=== PATIENT | male | born 1945 | race Caucasian/White ===

== ENCOUNTER 2021-04-06 10:04 | Outpatient (CLI) | payer MEDICARE ==
[~2021-04-06] VITALS: Ht 172.7 cm; Wt 88.0 kg
[2021-04-06 10:08] VITALS: BP 191/89
[2021-04-06] MEDS ORDERED: diphenhydrAMINE 50 MG/ML INJ (BENADRYL) IV PRN (10:15)
[2021-04-06] MEDS ORDERED: CASIRIVIMAB/IMDEVIMAB 1,200 MG in NS (IVPB) 250 ML IV ONE (10:15)
[2021-04-06] MEDS ORDERED: ACETAMINOPHEN 500 MG TAB (TYLENOL) PO PRN (10:15)
[2021-04-06] MEDS ORDERED: EPINEPHrine INJECTION 1 MG/ML AMP IM PRN (10:15)
[2021-04-06] MEDS ORDERED: ONDANSETRON 4 MG/2 ML (SDV) Z0FRAN IV PRN (10:15)
[2021-04-06 11:38] VITALS: BP 149/80
== END 2021-04-06 11:52 | disposition home or self-care (01) ==
LOC: INFUSION 10:04
PROVIDERS: ATTEND Registered Nurse Neonatal Intensive Care
DX: U07.1 COVID-19 (principal)

== ENCOUNTER 2022-03-27 07:47 | Inpatient (IN) | payer OTHER, MEDICARE ==
[2022-03-27] VITALS (8 sets, daily range): BP systolic 91–125; BP diastolic 36–84
[~2022-03-27] VITALS: Ht 175.3 cm; Wt 100.5 kg
--- NOTE | 2022-03-27 07:59 | ED Abdominal Pain ---
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 Pain is mainly in the umbilical area and the RUQ, and is associated with lack of appetite and intolerance to food or liquids. Patient also has multiple episodes of diarrhea over the past 3 to 4 days which is watery, non-bloody. Denies chest pain, fever, chills, palpitations, dizziness, constipation, headache. No known sick contacts. Allergies and Home Medications Allergies Coded Allergies: Penicillins (Unverified Allergy, Unknown, 04/06/21) streptomycin (Unverified Allergy, Unknown, 04/06/21) Patient Home Medication List Home Medication List Reviewed: Yes Review of Systems Review of Systems Constitutional: no symptoms reported EENTM: No Symptoms Reported Respiratory: No Symptoms Reported Cardiovascular: No Symptoms Reported Gastrointestinal: Abdominal Pain, Diarrhea, Poor Appetite, Poor Fluid Intake Genitourinary: No Symptoms Reported Musculoskeletal: no symptoms reported Skin: no symptoms reported Psychiatric/Neurological: No Symptoms Reported Endocrine: No Symptoms Reported Hematologic/Lymphatic: No Symptoms Reported Physical Exam Vital Signs Vital Signs - First Documented 03/27/22 08:06 Temp 35.3 Pulse 61 Resp 18 B/P (MAP) 125/84 (98) Pulse Ox 94 O2 Delivery Room Air Capillary Refill : Height/Weight/BMI Height: '" Weight: lbs. oz. kg; BMI Method: General Appearance: WD/WN, no apparent distress HEENT: PERRL/EOMI Neck: non-tender, full range of motion, supple, normal inspection Respiratory: chest non-tender, lungs clear, normal breath sounds Cardiovascular: normal peripheral pulses, regular rate, rhythm, no edema Gastrointestinal: normal bowel sounds, soft, tenderness (RUQ tenderness and periumbilical area tenderness present) Extremities: normal range of motion Back: normal inspection, no CVA tenderness Pelvic: normal external exam Neurologic/Psychiatric: no motor/sensory deficits, alert, oriented x 3 Skin: normal color Lymphatic: no adenopathy Focused Exam Lactate Level 03/27/22 08:14: Lactic Acid Level 2.28*H 03/27/22 10:20: Lactic Acid Level 1.97 Lactic Acid Level Laboratory Tests Test 03/27/22 08:14 03/27/22 10:20 Lactic Acid Level 2.28 MMOL/L (0.50-2.00) *H 1.97 MMOL/L (0.50-2.00) Progress/Results/Core Measures Results/Orders Lab Results Laboratory Tests Test 03/27/22 08:14 03/27/22 08:50 03/27/22 10:20 Range/Units White Blood Count 11.8 H 4.3-11.0 10^3/uL Red Blood Count 5.88 H 4.30-5.52 10^6/uL Hemoglobin 18.0 H 13.3-17.7 g/dL Hematocrit 53 40-54 % Mean Corpuscular Volume 91 80-99 fL Mean Corpuscular Hemoglobin 31 25-34 pg Mean Corpuscular Hemoglobin Concent 34 32-36 g/dL Red Cell Distribution Width 13.3 10.0-14.5 % Platelet Count 261 130-400 10^3/uL Mean Platelet Volume 11.3 9.0-12.2 fL Immature Granulocyte % (Auto) 1 % Neutrophils (%) (Auto) 69 42-75 % Lymphocytes (%) (Auto) 18 12-44 % Monocytes (%) (Auto) 5 0-12 % Eosinophils (%) (Auto) 7 0-10 % Basophils (%) (Auto) 1 0-10 % Neutrophils # (Auto) 8.2 H 1.8-7.8 10^3/uL Lymphocytes # (Auto) 2.1 1.0-4.0 10^3/uL Monocytes # (Auto) 0.6 0.0-1.0 10^3/uL Eosinophils # (Auto) 0.8 H 0.0-0.3 10^3/uL Basophils # (Auto) 0.1 0.0-0.1 10^3/uL Immature Granulocyte # (Auto) 0.1 0.0-0.1 10^3/uL Sodium Level 136 135-145 MMOL/L Potassium Level 5.2 H 3.6-5.0 MMOL/L Chloride Level 101 98-107 MMOL/L Carbon Dioxide Level 19 L 21-32 MMOL/L Anion Gap 16 H 5-14 MMOL/L Blood Urea Nitrogen 34 H 7-18 MG/DL Creatinine 2.66 H 0.60-1.30 MG/DL Estimat Glomerular Filtration Rate 24 BUN/Creatinine Ratio 13 Glucose Level 252 H 70-105 MG/DL Lactic Acid Level 2.28 *H 1.97 0.50-2.00 MMOL/L Calcium Level 10.1 8.5-10.1 MG/DL Corrected Calcium 8.5-10.1 MG/DL Magnesium Level 1.8 1.6-2.4 MG/DL Total Bilirubin 0.4 0.1-1.0 MG/DL Aspartate Amino Transf (AST/SGOT) 49 H 5-34 U/L Alanine Aminotransferase (ALT/SGPT) 56 H 0-55 U/L Alkaline Phosphatase 152 H 40-136 U/L Troponin I < 0.30 <0.30 NG/ML Pro-B-Type Natriuretic Peptide 31.9 <450.0 PG/ML Total Protein 8.0 6.4-8.2 GM/DL Albumin 4.6 H 3.2-4.5 GM/DL Lipase 53 8-78 U/L Influenza Type A (RT-PCR) Not Detected Not Detecte Influenza Type B (RT-PCR) Not Detected Not Detecte SARS-CoV-2 RNA (RT-PCR) Not Detected Not Detecte My Orders Orders - MIKO RAMIREZ MD Chest 1 View Ap/Pa Only (03/27/22 08:13) Cbc With Automated Diff (03/27/22 08:13) Comprehensive Metabolic Panel (03/27/22 08:13) Magnesium (03/27/22 08:13) Ua Culture If Indicated (03/27/22 08:13) Stool Culture (03/27/22 08:13) Fecal Wbc (03/27/22 08:13) Rotavirus Antigen (03/27/22 08:13) Probnp Fs (03/27/22 08:13) Troponin I Fs (03/27/22 08:13) Ed Iv/Invasive Line Start (03/27/22 08:15) Ns Iv 1000 Ml (Sodium Chloride 0.9%) (03/27/22 08:15) Covid 19 Inhouse Test (03/27/22 08:22) Influenza A And B By Pcr (03/27/22 08:22) Ondansetron Injection (Zofran Injectio (03/27/22 08:30) Ketorolac Injection (Toradol Injection) (03/27/22 08:30) Ct Abdomen/Pelvis Wo (03/27/22 08:15) Lipase (03/27/22 09:32) Lactic Acid Analyzer (03/27/22 09:33) Blood Culture (03/27/22 09:33) Hydromorphone Injection (Dilaudid Inject (03/27/22 10:36) Hydromorphone Injection (Dilaudid Inject (03/27/22 11:00) Ed Iv/Invasive Line Start (03/27/22 10:47) Ns Iv 1000 Ml (Sodium Chloride 0.9%) (03/27/22 11:00) Ceftriaxone 1 Gm Pre-Mix (Rocephin 1 Gm (03/27/22 11:07) Catheter(Urinary) Insert & Ass 03,15 (03/27/22 11:59) Lidocaine 2% (Urojet) (Xylocaine Urojet) (03/27/22 12:00) Medications Given in ED Current Medications Medications Dose Ordered Sig/Wally Route Start Time Stop Time Status Last Admin Dose Admin Hydromorphone HCl 0.5 mg ONCE ONCE IV 03/27/22 11:00 03/27/22 11:01 DC 03/27/22 10:37 0.5 MG Ketorolac Tromethamine 15 mg ONCE ONCE IVP 03/27/22 08:30 03/27/22 08:31 DC 03/27/22 08:33 15 MG Ondansetron HCl 4 mg ONCE ONCE IVP 03/27/22 08:30 03/27/22 08:31 DC 03/27/22 08:33 4 MG Vital Signs/I&O 03/27/22 08:06 Temp 35.3 Pulse 61 Resp 18 B/P (MAP) 125/84 (98) Pulse Ox 94 O2 Delivery Room Air Progress Progress Note : Progress Note 1. PNEUMOBILIA/ Portal Veinous Air - CT ABD & PELVIS:Pneumobilia, see report - CXR:unremarkable - CBC: WBC is 11.8 with a left shift, Hb is increased: 18 - Mildly elevated AST/ ALT/ Alk Phos - UA negative for infection - Troponin: non-ischemic - Lipase neg - NS IVF/ x2 in ER - Toradol 15mg iv, then later Dilaudid 0.5mg iv for pain - Zofran iv and Reglan iv given in ER - Discussed with Dr Schaeffer at 10:45 AM, request to radiology for re-read on CT abdomen - Will admit to cardiac step-down, accepted by hospitalist 2. DEHYDRATION with ALETHEA/ POSSIBLE EARLY SEPSIS - No history of kidney disease, last HbA1c is 6.8 - Lactic acid is 2.28, blood cultures sent - Stool studies sent - WBC is 11.8 with a left shift - COVID test/ Rapid Flu Test:negative - Empiric treatment with ceftriaxone 1gm iv STAT in ER Diagnostic Imaging Diagonstic Imaging: Xray, CT Plain Films/CT/US/NM/MRI: chest, abdomen Comments Auto Exposure Controls were utilized during the CT exam to meet ALARA standards for radiation dose reduction. There is no prior CT abdomen pelvis for comparison Visualized portions of the lung bases show no consolidation. There is no pleural fluid or free intraperitoneal air. The liver shows no focal lesion. There are small areas of air within the left lobe of the liver which may represent portal venous gas. The stomach shows some thickening of its folds. There is no definitive air in the gastric wall but gastric wall air is difficult to exclude. A small amount of air is seen in the left upper quadrant veins adjacent to the stomach. Patient's had previous cholecystectomy and a small amount of air seen in the biliary tree as well. The spleen, adrenals, and pancreas are normal. Kidneys bilaterally show no hydronephrosis, there are small nonocclusive stones in the right kidney. There is no ureteral stone or hydronephrosis. There is no retroperitoneal mass or adenopathy. There is atherosclerotic change of aorta without evidence of aneurysm. Visualized bowel loops show no focal bowel wall thickening or obstruction. There are uncomplicated clonic diverticuli. There is prostatic enlargement. There is no pelvic lymphadenopathy. There is a small fat-containing periumbilical hernia as well as small fat-containing bilateral inguinal hernias. IMPRESSION: There is air in the left lobe the liver which is suspicious for portal venous air. There is no significant pneumatosis intestinalis or significant intestinal wall thickening. There is some thickening of the gastric folds, air in the gastric wall is not definitively seen but is difficult to exclude given the appearance of the gastric folds. A small amount of air seen in the left upper quadrant veins adjacent to the stomach. There is no abdominal mass or abnormal fluid collection. There is a nonocclusive stone in the right kidney. Prostatic enlargement is noted. Patient has had previous cholecystectomy. Dictated by: Dictated on workstation # [id number] Dict: 03/27/2257 Trans: 03/27/[address] [facility] [id number] Interpreted by: VANESSA REEVES MD Electronically signed by: VANESSA REEVES MD 03/27/22 1115 [facility] [place], [place] NAME: CESILIA FOSTER [facility] REC#: [id number] PT STATUS: REG ER : 1945 PHYSICIAN: MIKO RAMIREZ MD ADMIT DATE: 03/27/22/ER FS Signed Date of Exam:03/27/22 CHEST 1 VIEW AP/PA ONLY HISTORY: Nausea and vomiting, abdominal pain. COMPARISON: None TECHNIQUE: Frontal view of the chest. FINDINGS: There is linear opacity in the left lung base, likely atelectasis or scarring. No other consolidation is seen. There is no pleural effusion or pneumothorax. The cardiac silhouette is normal in size. There is aortic atherosclerosis. There are degenerative changes in the shoulders and spine. IMPRESSION: 1. Linear opacity in the left lung base likely represents atelectasis or scarring. Dictated by: Dictated on workstation # [id number] Dict: 03/27/2204 Trans: 03/27/22 1002 [id number] Interpreted by: JESSICA BENJAMIN MD Electronically signed by: JESSICA BENJAMIN MD 03/27/22 1002 Departure Impression Primary Impression: Pneumobilia Additional Impressions: Abdominal pain Qualified Codes: R10.11 - Right upper quadrant pain ALETHEA (acute kidney injury) Dehydration Disposition: 30 STILL A PATIENT Condition: Stable Admissions Decision to Admit Reason: Admit from ER (General) Decision to Admit/Date: Mar 27, 2022 Time/Decision to Admit Time: 11:40 Transfer Method of Transfer: EMS Departure-Patient Inst. Referrals: FARHAN PETERSEN MD (PCP) Primary Care Physician MIKO RAMIREZ MD Mar 27, 2022 07:59
[2022-03-27] MEDS ORDERED: NS IV 1000 ML 1,000 ML IV STA (08:15)
[2022-03-27 08:24] LABS: BASOPHILS # (AUTO) 0.1 10^3/uL (0.0-0.1); BASOPHILS % (AUTO) 1 % (0-10); EOSINOPHILS # (AUTO) 0.8 10^3/uL (0.0-0.3); EOSINOPHILS % (AUTO) 7 % (0-10); HEMATOCRIT 53 % (40-54); LYMPHOCYTES # (AUTO) 2.1 10^3/uL (1.0-4.0); LYMPHOCYTES % (AUTO) 18 % (12-44); MEAN CORPUSCULAR HEMOGLOBIN 31 pg (25-34); MEAN CORPUSCULAR HGB CONC 34 g/dL (32-36); MEAN CORPUSCULAR VOLUME 91 fL (80-99); MEAN PLATELET VOLUME 11.3 fL (9.0-12.2); MONOCYTES # (AUTO) 0.6 10^3/uL (0.0-1.0); MONOCYTES % (AUTO) 5 % (0-12); NEUTROPHILS # (AUTO) 8.2 10^3/uL (1.8-7.8); NEUTROPHILS % (AUTO) 69 % (42-75); PLATELET COUNT 261 10^3/uL (130-400); WHITE BLOOD COUNT 11.8 10^3/uL (4.3-11.0)
[2022-03-27] MEDS ORDERED: ONDANSETRON 4 MG/2 ML (SDV) Z0FRAN IVP ONE (08:30)
[2022-03-27] MEDS ORDERED: KETOROLAC 30 MG/ML VIAL IVP ONE (08:30)
[2022-03-27] MEDS ORDERED: NS 100 ML (IVPB) BAG IV ONE (08:45)
[2022-03-27] MEDS ORDERED: HOLD METFORMIN - RECEIVED CONTRAST 20 ML VIAL IV SCH (08:45)
[2022-03-27] MEDS ORDERED: IOHEXOL 350 MG/ML 100 ML (OMNIPAQUE 350) VIAL IV ONE (08:45)
--- NOTE | 2022-03-27 09:07 | Diagnostic Imaging Report ---
HISTORY: Nausea and vomiting, abdominal pain. COMPARISON: None TECHNIQUE: Frontal view of the chest. FINDINGS: There is linear opacity in the left lung base, likely atelectasis or scarring. No other consolidation is seen. There is no pleural effusion or pneumothorax. The cardiac silhouette is normal in size. There is aortic atherosclerosis. There are degenerative changes in the shoulders and spine. IMPRESSION: 1. Linear opacity in the left lung base likely represents atelectasis or scarring. Dictated by: Dictated on workstation # [id number]
[2022-03-27 09:23] LABS: POTASSIUM 5.2 MMOL/L (3.6-5.0); SODIUM 136 MMOL/L (135-145)
[2022-03-27 09:24] LABS: ALANINE AMINOTRANSFERASE 56 U/L (0-55); ALKALINE PHOSPHATASE 152 U/L (40-136); BILIRUBIN,TOTAL 0.4 MG/DL (0.1-1.0); BUN/CREATININE RATIO 13; CALCIUM 10.1 MG/DL (8.5-10.1); CARBON DIOXIDE 19 MMOL/L (21-32); CHLORIDE 101 MMOL/L (98-107); CREATININE SERUM 2.66 MG/DL (0.60-1.30); GFR ESTIMATED 24; GLUCOSE 252 MG/DL (70-105); MAGNESIUM 1.8 MG/DL (1.6-2.4)
[2022-03-27 09:25] LABS: ALBUMIN 4.6 GM/DL (3.2-4.5)
--- NOTE | 2022-03-27 10:15 | Diagnostic Imaging Report ---
Indication: Right upper quadrant pain x4 days TECHNIQUE: Multiple contiguous axial images were obtained through the abdomen and pelvis without the use of intravenous contrast. Auto Exposure Controls were utilized during the CT exam to meet ALARA standards for radiation dose reduction. There is no prior CT abdomen pelvis for comparison Visualized portions of the lung bases show no consolidation. There is no pleural fluid or free intraperitoneal air. The liver shows no focal lesion. There are small areas of air within the left lobe of the liver which may represent portal venous gas. The stomach shows some thickening of its folds. There is no definitive air in the gastric wall but gastric wall air is difficult to exclude. A small amount of air is seen in the left upper quadrant veins adjacent to the stomach. Patient's had previous cholecystectomy and a small amount of air seen in the biliary tree as well. The spleen, adrenals, and pancreas are normal. Kidneys bilaterally show no hydronephrosis, there are small nonocclusive stones in the right kidney. There is no ureteral stone or hydronephrosis. There is no retroperitoneal mass or adenopathy. There is atherosclerotic change of aorta without evidence of aneurysm. Visualized bowel loops show no focal bowel wall thickening or obstruction. There are uncomplicated clonic diverticuli. There is prostatic enlargement. There is no pelvic lymphadenopathy. There is a small fat-containing periumbilical hernia as well as small fat-containing bilateral inguinal hernias. IMPRESSION: There is air in the left lobe the liver which is suspicious for portal venous air. There is no significant pneumatosis intestinalis or significant intestinal wall thickening. There is some thickening of the gastric folds, air in the gastric wall is not definitively seen but is difficult to exclude given the appearance of the gastric folds. A small amount of air seen in the left upper quadrant veins adjacent to the stomach. There is no abdominal mass or abnormal fluid collection. There is a nonocclusive stone in the right kidney. Prostatic enlargement is noted. Patient has had previous cholecystectomy. Dictated by: Dictated on workstation # [id number]
[2022-03-27] MEDS ORDERED: HYDROmorphone 2 MG/ML VIAL (DILAUDID) ONE (10:36)
[2022-03-27] MEDS ORDERED: HYDROmorphone 2 MG/ML VIAL (DILAUDID) IV ONE ×2 (11:00→14:30)
[2022-03-27] MEDS ORDERED: NS IV 1000 ML 1,000 ML IV SCH ×3 (11:00→19:30)
[2022-03-27] MEDS ORDERED: cefTRIAXone 1 GM PRE-MIX 50 ML IV STA (11:07)
[2022-03-27] MEDS ORDERED: LIDOCAINE UROJET 2% GEL 10 ML PKG TOP ONE (12:00)
[2022-03-27] MEDS ORDERED: METOCLOPRAMIDE INJ 10 MG/2 ML (REGLAN) IVP STA (12:11)
[2022-03-27] MEDS ORDERED: FAMOTIDINE 20MG/2ML IV (PEPCID) IVP ONE (12:45)
[2022-03-27 13:20] LABS: CLARITY,URINE SLT CLOUDY; COLOR,URINE YELLOW
[2022-03-27 13:21] LABS: GLUCOSE, URINE (UA) 2+ (NEGATIVE); KETONES,URINE TRACE (NEGATIVE); NITRITE,URINE NEGATIVE (NEGATIVE); PROTEIN,URINE TRACE (NEGATIVE)
[2022-03-27 13:22] LABS: BACTERIA,URINE NEGATIVE /HPF; BILIRUBIN,URINE 1+ (NEGATIVE); LEUKOCYTE ESTERASE ,URINE NEGATIVE (NEGATIVE); WBC,URINE 0-2 /HPF
[2022-03-27] MEDS ORDERED: diphenhydrAMINE 25 MG TAB (BENADRYL) PO PRN (16:00)
[2022-03-27] MEDS ORDERED: ACETAMINOPHEN 325 MG TABLET PO PRN (16:00)
[2022-03-27] MEDS ORDERED: ONDANSETRON 4 MG/2 ML (SDV) Z0FRAN IV PRN (16:00)
[2022-03-27] MEDS ORDERED: MELATONIN 3 MG TABLET PO PRN (16:00)
[2022-03-27] MEDS ORDERED: ANTACID SUSP 30 ML UDC (MYLANTA) PO PRN (16:00)
[2022-03-27] MEDS ORDERED: diphenhydrAMINE 50 MG/ML INJ (BENADRYL) IVP PRN (16:00)
[2022-03-27] MEDS ORDERED: polyethylene glycoL POWDER 17 GM (MIRALAX) PACK PO PRN (16:00)
[2022-03-27] MEDS ORDERED: BISACODYL 10 MG SUPP (DULCOLAX) PR PRN (16:00)
[2022-03-27] MEDS ORDERED: ONDANSETRON 4 MG (ZOFRAN) ORAL DISSOLVE TAB PO PRN (16:00)
--- NOTE | 2022-03-27 16:39 | History & Physical-Hospitalist ---
ARTURRISHI 03/27/22 1639: History of Present Illness HPI/Chief Complaint CC: watery diarrhea and abdominal pain Bonilla Hall, 77 YO male with history of CAD, AK/stent placement 2001, GERD and T2DM presented to [facility] ED today with 3-4 days of watery diarrhea and RUQ abdominal pain. He is admitted to medicine for CT evidence of pneumobilia, dehydration with ALETHEA, and possible early sepsis, with elevated white cell count with left shift and lactic acidosis (has improved, down to 1.97). He was started on ceftriaxone, pain meds, and nausea medications in the ED. States he is feeling better, rates his RUQ pain 2/10 and has not had any bouts of diarrhea since admission. He has not eaten in the last 3 days and has had little fluid intake. States he has chills and feels warm. Denies blood in stool, vomiting, chest pain, shortness of breath, palpitations, cough, or any other acute sx at this time. No recent illness or sick contacts. He takes plavix, but did not take it this morning. Hx of open appendectomy and partial esophagectomy at age 3 and cholecystectomy at age 74. He is seen at [facility]. Source: patient, other ([facility] ED report) Exam Limitations: no limitations Date Seen 03/27/22 Time Seen by a Provider: 16:10 Attending Physician Douglas Ponce MD PCP Admitting Physician: Yesenia Yang DO Attending Physician: Yesenia Yang DO Referring Physician Date of Admission Mar 27, 2022 at 15:35 Home Medications & Allergies Home Medications Reviewed patient Home Medication Reconciliation performed by pharmacy medication reconciliations diet technician registered and/or nursing. Patients Allergies have been reviewed. Allergies Allergies Coded Allergies Penicillins (Unverified Allergy, Unknown, 04/06/21) streptomycin (Unverified Allergy, Unknown, 04/06/21) Past Pmqvzrh-Xhgxbq-Gezrzf Hx Patient Social History Tobacco Use?: No Smoking Status: Former Smoker Smokeless Tobacco Frequency: Never a User Use of E-Cig and/or Vaping dev: No Substance use?: No Alcohol Use?: No Pt feels they are or have been: No Current Status Advance Directives: Yes Advance Directive Location: [facility] Communicates: Verbally Primary Language: Scottish Preferred Spoken Language: Scottish Is interpretation needed?: No Implanted or Applied Medical D: Stents Past Medical History Surgeries: Abdominal, Appendectomy, Coronary Stent (2001), Gallbladder, Tonsillectomy Coronary Artery Disease, Heart Attack (2001) Gastroesophageal Reflux Family Medical History Cancer (Sister had stage 4 colon cancer at age 55; in remission with colostomy ) Review of Systems Constitutional: chills; No fever EENTM: No blurred vision, No double vision Respiratory: No cough, No short of breath Cardiovascular: No chest pain Gastrointestinal: RUQ, abdominal pain (RUQ), diarrhea; No hematemesis; loss of appetite; No melena; nausea; No vomiting Genitourinary: decreased output (due to dec fluid intake); No dysuria Musculoskeletal: No joint pain Skin: No change in color, No rash Physical Exam Physical Exam Vital Signs Vital Signs - First Documented 03/27/22 08:06 Temp 35.3 Pulse 61 Resp 18 B/P (MAP) 125/84 (98) Pulse Ox 94 O2 Delivery Room Air Capillary Refill : Less Than 3 Seconds Height, Weight, BMI Height: '" Weight: lbs. oz. kg; 31.76 BMI Method: General Appearance: No Apparent Distress, WD/WN Eyes: Bilateral Eye PERRL, Bilateral Eye EOMI HEENT: PERRL/EOMI, Moist Mucous Membranes Neck: Non Tender, Supple Respiratory: Chest Non Tender, Lungs Clear, Normal Breath Sounds, No Accessory Muscle Use, No Respiratory Distress Cardiovascular: Regular Rate, Rhythm, No Gallop, No Murmur, Normal Peripheral Pulses Gastrointestinal: Non Tender, Soft, Abnormal Bowel Sounds (decreased ); No Distended, No Guarding, No Hernia; Other (large scar from open appendectomy ) Back: No CVA Tenderness Extremity: Non Tender, No Calf Tenderness, No Pedal Edema Neurologic/Psychiatric: Alert, Oriented x3, Normal Mood/Affect Skin: Normal Color, Warm/Dry; No Pallor, No Rash Lymphatic: No Adenopathy Results Results/Procedures Labs Laboratory Tests 03/27/22 08:14 Patient resulted labs reviewed. Imaging Date of Exam:03/27/22 CT ABDOMEN/PELVIS WO Indication: Right upper quadrant pain x4 days TECHNIQUE: Multiple contiguous axial images were obtained through the abdomen and pelvis without the use of intravenous contrast. Auto Exposure Controls were utilized during the CT exam to meet ALARA standards for radiation dose reduction. There is no prior CT abdomen pelvis for comparison Visualized portions of the lung bases show no consolidation. There is no pleural fluid or free intraperitoneal air. The liver shows no focal lesion. There are small areas of air within the left lobe of the liver which may represent portal venous gas. The stomach shows some thickening of its folds. There is no definitive air in the gastric wall but gastric wall air is difficult to exclude. A small amount of air is seen in the left upper quadrant veins adjacent to the stomach. Patient's had previous cholecystectomy and a small amount of air seen in the biliary tree as well. The spleen, adrenals, and pancreas are normal. Kidneys bilaterally show no hydronephrosis, there are small nonocclusive stones in the right kidney. There is no ureteral stone or hydronephrosis. There is no retroperitoneal mass or adenopathy. There is atherosclerotic change of aorta without evidence of aneurysm. Visualized bowel loops show no focal bowel wall thickening or obstruction. There are uncomplicated clonic diverticuli. There is prostatic enlargement. There is no pelvic lymphadenopathy. There is a small fat-containing periumbilical hernia as well as small fat-containing bilateral inguinal hernias. IMPRESSION: There is air in the left lobe the liver which is suspicious for portal venous air. There is no significant pneumatosis intestinalis or significant intestinal wall thickening. There is some thickening of the gastric folds, air in the gastric wall is not definitively seen but is difficult to exclude given the appearance of the gastric folds. A small amount of air seen in the left upper quadrant veins adjacent to the stomach. There is no abdominal mass or abnormal fluid collection. There is a nonocclusive stone in the right kidney. Prostatic enlargement is noted. Patient has had previous cholecystectomy. Dictated by: Dictated on workstation # [id number] Dict: 03/27/22 0957 Trans: 03/27/22 1115 [facility] [place] [id number] Interpreted by: VANESSA REEVES MD Electronically signed by: VANESSA REEVES MD 03/27/22 1115 Assessment/Plan Admission Diagnosis Pneumobilia Admission Status: Inpatient Order (span 2 midnights) Reason for Inpatient Admission: Pneumobilia, Dehydration with ALETHEA Assessment and Plan Pneumobilia and portal venous air Dehydration with ALETHEA Possible early sepsis Lactic Acidosis - improved to 1.97 CAD Chronic anticoagulation - hold plavix Mildly elevated AST/ALT and Alk phos General surgery consulted, pt is NPO at this time IVF to improve hydration status Continue IV abx (ceftriaxone). Blood cultures pending Monitor labs and liver function Clinical Quality Measures DVT/VTE Risk/Contraindication: Contraindications-Pharm: Other *list below* Other: or YESENIA YANG DO 03/28/22 0534: History of Present Illness HPI/Chief Complaint CC: Abdominal pain HPI: This is a complicated [facility] male pt. 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 He presented to the ER with abdominal pain. He was found to have free air on CT scan. We will evaluate that. Continue supportive care and place him on cardiac step down unit. Dr. Schaeffer will review the plan. He was given one dose of Rocephin. Source: patient Exam Limitations: no limitations Past Xhhbbio-Yoszpx-Psazqq Hx Patient Social History Marrital Status: single Review of Systems Constitutional: see HPI Physical Exam Physical Exam General Appearance: No Apparent Distress, Chronically ill Eyes: Right Eye Normal Inspection, Right Eye PERRL HEENT: PERRL/EOMI, Normal ENT Inspection, Pharynx Normal, Moist Mucous Membranes Neck: Full Range of Motion, Normal Inspection, Non Tender Respiratory: Chest Non Tender, Lungs Clear, Normal Breath Sounds, No Accessory Muscle Use, No Respiratory Distress Cardiovascular: Regular Rate, Rhythm, No Edema, No Gallop, No JVD, No Murmur, Normal Peripheral Pulses Gastrointestinal: Normal Bowel Sounds, No Organomegaly, No Pulsatile Mass, Non Tender, Soft Back: Normal Inspection, No CVA Tenderness, No Vertebral Tenderness Extremity: Normal Capillary Refill, Normal Inspection, Normal Range of Motion, Non Tender, No Calf Tenderness, No Pedal Edema Neurologic/Psychiatric: Alert, Oriented x3, No Motor/Sensory Deficits, Normal Mood/Affect Skin: Normal Color, Warm/Dry Lymphatic: No Adenopathy Assessment/Plan Admission Diagnosis Assessment: Free air in abdomen ALETHEA Dehydration Plan: IVF Supportive care Admission Status: Inpatient Order (span 2 midnights) Reason for Inpatient Admission: alethea free air Supervisory-Addendum Brief Verification & Attestation Participated in pt care: history, MDM, physical Personally performed: exam, history, MDM, supervision of care Care discussed with: Medical Student Procedures: n/a Results interpretation: Verified all documentation Verification and Attestation of Medical Student E/M Service A medical student performed and documented this service in my presence. I revie wed and verified all information documented by the medical student and made modifications to such information, when appropriate. I personally performed the physical exam and medical decision making. Yesenia Yang, Mar 28, 2022,05:33 RISHI SIDDIQUI Mar 27, 2022 16:39 YESENIA YANG DO Mar 28, 2022 05:34
--- NOTE | 2022-03-27 17:37 | Consultation - Surgery ---
FABRICIO BRITT 03/27/22 1737: History of Present Illness History of Present Illness Patient Consulted On(rosalinda/time) 03/27/22 17:31 Date Seen by Provider: Mar 27, 2022 Time Seen by Provider: 16:48 History of Present Illness Consult requested by Dr. Kothari. Patient is a 77 y/o M with history of CAD, STEMI with stent (2001), T2DM who presents from [facility] with CC of intermittent abdominal pain for the last 3 to 4 days. He reports that the pain was mostly in his RUQ with some pain around his umbilicus. Currently it is at 2/10 after receiving Dilaudid in the ER. Patient also reports having diarrhea frequently but no blood in his stool. Patient states he has an additional history of partial esophagectomy and appy at age 3. His sister was diagnosed with Stage 4 colon cancer at age 55. His last meal was 3 days ago. Allergies and Home Medications Allergies Coded Allergies: Penicillins (Unverified Allergy, Unknown, 04/06/21) streptomycin (Unverified Allergy, Unknown, 04/06/21) Patient Home Medication List Home Medication List Reviewed: Yes Past Fciroqq-Lrbavc-Kaptxg Hx Patient Social History Smoking Status: Former Smoker Alcohol Use?: No Have you traveled recently?: No Surgeries Surgeries: Abdominal, Appendectomy, Coronary Stent (2001), Gallbladder, Tonsillectomy Cardiovascular Cardiac Disorders: Coronary Artery Disease, Heart Attack (2001) Gastrointestinal Gastrointestinal Disorders: Gastroesophageal Reflux Family Medical History Significant Family History: Cancer (Sister had stage 4 colon cancer at age 55; in remission with colostomy ) Review of Systems-General Constitutional: chills; No fever Respiratory: No cough, No dyspnea on exertion, No short of breath Gastrointestinal: abdominal pain (RUQ), diarrhea; No nausea, No vomiting Physical Exam-General Problems Physical Exam Vital Signs Vital Signs - First Documented 03/27/22 03/27/22 08:06 16:26 Temp 35.3 Pulse 61 Resp 18 B/P (MAP) 125/84 (98) Pulse Ox 94 O2 Delivery Room Air O2 Flow Rate 0.00 Capillary Refill : Less Than 3 Seconds General Appearance: WD/WN, no apparent distress Neck: non-tender, supple Respiratory: chest non-tender, lungs clear, normal breath sounds, no respiratory distress, no accessory muscle use Cardiovascular: regular rate, rhythm, tachycardia Gastrointestinal: normal bowel sounds, non tender, soft Extremities: no pedal edema, no calf tenderness Neurologic/Psychiatric: alert, normal mood/affect Skin: normal color, warm/dry Data Review Labs Laboratory Tests 03/27/22 08:14: White Blood Count 11.8H, Red Blood Count 5.88H, Hemoglobin 18.0H, Hematocrit 53, Mean Corpuscular Volume 91, Mean Corpuscular Hemoglobin 31, Mean Corpuscular Hemoglobin Concent 34, Red Cell Distribution Width 13.3, Platelet Count 261, Mean Platelet Volume 11.3, Immature Granulocyte % (Auto) 1, Neutrophils (%) (Auto) 69, Lymphocytes (%) (Auto) 18, Monocytes (%) (Auto) 5, Eosinophils (%) (Auto) 7, Basophils (%) (Auto) 1, Neutrophils # (Auto) 8.2H, Lymphocytes # (Auto) 2.1, Monocytes # (Auto) 0.6, Eosinophils # (Auto) 0.8H, Basophils # (Auto) 0.1, Immature Granulocyte # (Auto) 0.1, Sodium Level 136, Potassium Level 5.2H, Chloride Level 101, Carbon Dioxide Level 19L, Anion Gap 16H, Blood Urea Nitrogen 34H, Creatinine 2.66H, Estimat Glomerular Filtration Rate 24, BUN/Creatinine Ratio 13, Glucose Level 252H, Lactic Acid Level 2.28*H, Calcium Level 10.1, Corrected Calcium , Magnesium Level 1.8, Total Bilirubin 0.4, Aspartate Amino Transf (AST/SGOT) 49H, Alanine Aminotransferase (ALT/SGPT) 56H, Alkaline Phosphatase 152H, Troponin I < 0.30, Pro-B-Type Natriuretic Peptide 31.9, Total Protein 8.0, Albumin 4.6H, Lipase 53 03/27/22 08:50: Influenza Type A (RT-PCR) Not Detected, Influenza Type B (RT-PCR) Not Detected, SARS-CoV-2 RNA (RT-PCR) Not Detected 03/27/22 10:20: Lactic Acid Level 1.97 03/27/22 12:25: Urine Color YELLOW, Urine Clarity SLT CLOUDY, Urine pH 5.0, Urine Specific [place] >=1.030, Urine Protein TRACEH, Urine Glucose (UA) 2+H, Urine Ketones TRACEH, Urine Nitrite NEGATIVE, Urine Bilirubin 1+H, Urine Urobilinogen 0.2, Urine Leukocyte Esterase NEGATIVE, Urine RBC (Auto) NEGATIVE, Urine RBC NONE, Urine WBC 0-2, Urine Squamous Epithelial Cells NONE, Urine Crystals NONE, Urine Bacteria NEGATIVE, Urine Casts PRESENT, Urine Hyaline Casts 2-5H, Urine Mucus SMALLH, Urine Culture Indicated NO Assessment/Plan Assessment/Plan Assessment/Plan Assessment: Pneumobilia on CT Abd/Pelvis Abdominal Pain Diarrhea Plan: Continue to monitor patient labs. Micro still pending. Ex-Lap may be necessary if bowel is present. Pain control with meds. NPO. Clinical Quality Measures DVT/VTE Risk/Contraindication: Contraindications-Pharm: Other *list below* Other: or ELISHA MARTINEZ DO 03/28/22 0838: History of Present Illness History of Present Illness Time Seen by Provider: 16:51 History of Present Illness Surgery asked to consult regarding abdominal pain, pneumobilia. 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 Pain is mainly in the umbilical area and the RUQ, and is associated with lack of appetite and intolerance to food or liquids. Patient also has multiple episodes of diarrhea over the past 3 to 4 days which is watery, non-bloody. Denies chest pain, fever, chills, palpitations, dizziness, constipation, headache. No known sick contacts. When I saw pt he was laying comfortably in bed, complained of some abdominal pain but stated it wasn't really getting bad. He has not been able to eat any food for 3 days, did have some coffee. Nothing really makes is better or worse and not really radiating anywhere. Pt described it as dull, achey and constant. Allergies and Home Medications Allergies Coded Allergies: Penicillins (Unverified Allergy, Unknown, 04/06/21) streptomycin (Unverified Allergy, Unknown, 04/06/21) Patient Home Medication List Home Medication List Reviewed: Yes Past Iiocjfw-Xcdnol-Ggmnjj Hx Patient Social History Smoking Status: Former Smoker Alcohol Use?: No Surgeries History of Surgeries: Yes (Esophagectomy at age 3) Surgeries: Appendectomy, Coronary Stent, Gallbladder, Tonsillectomy Respiratory History of Respiratory Disorde: No Cardiovascular History of Cardiac Disorders: Yes Cardiac Disorders: Coronary Artery Disease, Hypertension Neurological History of Neurological Disord: No Reproductive System Hx Reproductive Disorders: No Sexually Transmitted Disease: No Genitourinary History of Genitourinary Disor: No Gastrointestinal History of Gastrointestinal Di: Yes Gastrointestinal Disorders: Gastroesophageal Reflux Musculoskeletal History of Musculoskeletal Dis: Yes Musculoskeletal Disorders: Arthritis Endocrine History of Endocrine Disorders: No HEENT History of HEENT Disorders: No Loss of Vision: Denies Hearing Impairment: Denies Cancer History of Cancer: No Psychosocial History of Psychiatric Problem: No Family Medical History Significant Family History: Cancer Review of Systems-General Constitutional: chills; No fever EENTM: No blurred vision, No mouth swelling, No epistaxis Respiratory: No cough, No dyspnea on exertion, No short of breath Cardiovascular: No chest pain; Hx of Intervention; No palpitations Gastrointestinal: abdominal pain (RUQ), diarrhea; No jaundice, No nausea, No vomiting Genitourinary: No dysuria, No hematuria Musculoskeletal: joint pain, joint swelling Skin: No change in color, No change in hair/nails; dryness Psychiatric/Neurological: Denies Anxiety, Denies Depressed, Denies Seizure Physical Exam-General Problems Physical Exam General Appearance: WD/WN, no apparent distress Eyes: Bilateral Eye PERRL, Bilateral Eye EOMI HEENT: pharynx normal; No scleral icterus (R), No scleral icterus (L) Neck: non-tender, supple Respiratory: chest non-tender, lungs clear, normal breath sounds, no respiratory distress, no accessory muscle use Cardiovascular: regular rate, rhythm, no murmur Gastrointestinal: soft, no organomegaly, tenderness (subxyphoid and RUQ ), hernia (umbilical hernia with incarcerated fat) Back: no CVA tenderness, no vertebral tenderness Extremities: no pedal edema, no calf tenderness Neurologic/Psychiatric: medical appointment clerk II-XII nml as tested, alert, normal mood/affect, oriented x 3 Skin: normal color, warm/dry Lymphatic: no adenopathy (neck, axilla or groin) Data Review Radiology Date of Exam:03/27/22 CT ABDOMEN/PELVIS WO Indication: Right upper quadrant pain x4 days TECHNIQUE: Multiple contiguous axial images were obtained through the abdomen and pelvis without the use of intravenous contrast. Auto Exposure Controls were utilized during the CT exam to meet ALARA standards for radiation dose reduction. There is no prior CT abdomen pelvis for comparison Visualized portions of the lung bases show no consolidation. There is no pleural fluid or free intraperitoneal air. The liver shows no focal lesion. There are small areas of air within the left lobe of the liver which may represent portal venous gas. The stomach shows some thickening of its folds. There is no definitive air in the gastric wall but gastric wall air is difficult to exclude. A small amount of air is seen in the left upper quadrant veins adjacent to the stomach. Patient's had previous cholecystectomy and a small amount of air seen in the biliary tree as well. The spleen, adrenals, and pancreas are normal. Kidneys bilaterally show no hydronephrosis, there are small nonocclusive stones in the right kidney. There is no ureteral stone or hydronephrosis. There is no retroperitoneal mass or adenopathy. There is atherosclerotic change of aorta without evidence of aneurysm. Visualized bowel loops show no focal bowel wall thickening or obstruction. There are uncomplicated clonic diverticuli. There is prostatic enlargement. There is no pelvic lymphadenopathy. There is a small fat-containing periumbilical hernia as well as small fat-containing bilateral inguinal hernias. IMPRESSION: There is air in the left lobe the liver which is suspicious for portal venous air. There is no significant pneumatosis intestinalis or significant intestinal wall thickening. There is some thickening of the gastric folds, air in the gastric wall is not definitively seen but is difficult to exclude given the appearance of the gastric folds. A small amount of air seen in the left upper quadrant veins adjacent to the stomach. There is no abdominal mass or abnormal fluid collection. There is a nonocclusive stone in the right kidney. Prostatic enlargement is noted. Patient has had previous cholecystectomy. Dictated by: Dictated on workstation # [id number] Dict: 03/27/22 0957 Trans: 03/27/22 1115 [facility] [place] [id number] Interpreted by: VANESSA REEVES MD Electronically signed by: VANESSA REEVES MD 03/27/22 1115 Assessment/Plan Assessment/Plan Assessment/Plan Pneumobilia on CT Abd/Pelvis Abdominal Pain Diarrhea Loss of appetite Plan: Continue to monitor patient labs, serial abdominal exams. Micro still pending. Ex-Lap vs Diagnostic laparoscopy may be necessary if bowel is present. Pain control with meds, IV fluids, NPO. I am unsure of the significance of the CT findings; however, air in the venous system is not a good sign and could mean bowel. I reviewed the CT films myself (I was actually the one to find the air in veins and pointed it out to ER) and discussed case with ED physician and IM. I saw pt yesterday and finished typing note today. Supervisory-Addendum Brief Verification & Attestation Participated in pt care: history, MDM, physical Personally performed: exam, history, MDM, supervision of care Care discussed with: Medical Student Procedures: n/a Verification and Attestation of Medical Student E/M Service A medical student performed and documented this service. I then reviewed and verified all information documented by the medical student and made modifications to such information, when appropriate. I personally performed a physical exam, medical decision making and then discussed any differences between the notes and made revisions as necessary to create one note. Elisha Martinez , 03/28/22 , 08:49 FABRICIO BRITT Mar 27, 2022 17:37 ELISHA MARTINEZ DO Mar 28, 2022 08:38
[2022-03-27] MEDS ORDERED: RT-ALBUTEROL/IPRATROPIUM 3 ML (DUONEB) VIAL INH PRN (18:00)
[2022-03-27] MEDS ORDERED: NS IV 1000 ML 500 ML IV SCH (19:30)
[2022-03-27] MEDS ORDERED: NS IV 1000 ML 1,000 ML ONE (19:46)
[2022-03-27] MEDS: NS IV 1000 ML 1,000 ML IV SCH (19:49)
[2022-03-27] MEDS ORDERED: NS (IVPB) 250 ML IV PRN (20:15)
[2022-03-27] MEDS: DOCUSATE SODIUM 100 MG (COLACE) CAP PO SCH (23:06)
[2022-03-27] MEDS: inSUlin ASPART (NovoLOG) 1 UNIT/0.01 ML (CHARGE PER UNIT) SC SCH (23:07)
[2022-03-27] MEDS: HYDROmorphone 2 MG/ML VIAL (DILAUDID) IV PRN (23:22)
[2022-03-28] VITALS (9 sets, daily range): BP systolic 91–157; BP diastolic 55–79
[2022-03-28] MEDS: NS IV 1000 ML 1,000 ML IV SCH ×5 (02:11→20:48)
[2022-03-28 05:23] LABS: BASOPHILS # (AUTO) 0.1 10^3/uL (0.0-0.1); BASOPHILS % (AUTO) 0 % (0-10); EOSINOPHILS # (AUTO) 0.4 10^3/uL (0.0-0.3); EOSINOPHILS % (AUTO) 4 % (0-10); HEMATOCRIT 46 % (40-54); HEMOGLOBIN 15.2 g/dL (13.3-17.7); LYMPHOCYTES # (AUTO) 1.5 10^3/uL (1.0-4.0); LYMPHOCYTES % (AUTO) 13 % (12-44); MEAN CORPUSCULAR HEMOGLOBIN 31 pg (25-34); MEAN CORPUSCULAR HGB CONC 33 g/dL (32-36); MEAN CORPUSCULAR VOLUME 93 fL (80-99); MEAN PLATELET VOLUME 11.1 fL (9.0-12.2); MONOCYTES # (AUTO) 0.7 10^3/uL (0.0-1.0); MONOCYTES % (AUTO) 6 % (0-12); NEUTROPHILS % (AUTO) 77 % (42-75); PLATELET COUNT 158 10^3/uL (130-400); WHITE BLOOD COUNT 11.7 10^3/uL (4.3-11.0)
[2022-03-28 05:46] LABS: ALBUMIN 3.3 GM/DL (3.2-4.5); BILIRUBIN,TOTAL 0.5 MG/DL (0.1-1.0); CALCIUM 8.5 MG/DL (8.5-10.1); CREATININE SERUM 1.81 MG/DL (0.60-1.30); POTASSIUM 4.5 MMOL/L (3.6-5.0); TOTAL PROTEIN 5.9 GM/DL (6.4-8.2)
[2022-03-28] MEDS: inSUlin ASPART (NovoLOG) 1 UNIT/0.01 ML (CHARGE PER UNIT) SC SCH ×4 (05:54→21:00)
[2022-03-28] MEDS: HYDROmorphone 2 MG/ML VIAL (DILAUDID) IV PRN ×3 (06:01→18:40)
--- NOTE | 2022-03-28 07:58 | Progress Note - Surgery ---
FABRICIO BRITT 03/28/22 0758: Subjective Date Seen by a Provider: Mar 28, 2022 Time Seen by a Provider: 07:56 Subjective/Events-last exam Patient states he was able to sleep last night. He also reports no pain at the moment. States that pain meds are helping. Lactic Acid today is trending down from 2.28 to 0.98 today. Denies any other complaints at the moment. He would like to try liquids at this time. Review of Systems General: No Chills, No Night Sweats Pulmonary: No Dyspnea, No Cough Cardiovascular: No: Chest Pain, Palpitations Gastrointestinal: No: Nausea, Vomiting, Abdominal Pain Focused Exam Lactate Level 03/27/22 08:14: Lactic Acid Level 2.28*H 03/27/22 10:20: Lactic Acid Level 1.97 03/28/22 05:00: Lactic Acid Level 0.98 Lactic Acid Level Laboratory Tests Test 03/28/22 05:00 Lactic Acid Level 0.98 MMOL/L (0.50-2.00) Objective Exam Vital Signs Date Time Temp Pulse Resp B/P (MAP) Pulse Ox O2 Delivery O2 Flow Rate FiO2 03/28/22 04:07 36.4 03/28/22 04:00 91 19 103/68 (80) 91 Room Air 03/28/22 01:00 87 03/28/22 00:00 84 20 102/63 (76) 89 Room Air 03/27/22 23:00 76 18 108/64 (77) 92 Room Air 03/27/22 22:00 82 20 106/63 (78) 92 Room Air 03/27/22 21:00 81 16 91/60 (67) 93 Room Air 03/27/22 21:00 100 Room Air 03/27/22 20:00 80 108/66 (80) 94 Room Air 03/27/22 19:46 79 104/61 (75) 92 Room Air 03/27/22 19:00 80 03/27/22 18:29 Room Air 03/27/22 16:26 Room Air 0.00 03/27/22 16:13 35.3 61 21 03/27/22 16:03 36.6 79 16 91/62 (72) 92 Room Air 03/27/22 15:50 100 Room Air 03/27/22 15:46 78 03/27/22 15:30 74 18 102/36 (58) 90 Room Air 03/27/22 15:00 85 18 105/70 95 Room Air 03/27/22 08:06 35.3 61 18 125/84 (98) 94 Room Air I & O 03/28/22 07:00 Intake Total 3800 ml Output Total 565 ml Balance 3235 ml Capillary Refill : Less Than 3 Seconds General Appearance: No Apparent Distress, Chronically ill HEENT: PERRL/EOMI, Normal ENT Inspection, Pharynx Normal, Moist Mucous Membranes Neck: Full Range of Motion, Normal Inspection, Non Tender Respiratory: Chest Non Tender, Lungs Clear, Normal Breath Sounds, No Accessory Muscle Use, No Respiratory Distress Cardiovascular: Regular Rate, Rhythm, No Edema, No Gallop, No JVD, No Murmur, Normal Peripheral Pulses Gastrointestinal: normal bowel sounds, non tender, soft Extremity: Normal Capillary Refill, Normal Inspection, Normal Range of Motion, Non Tender, No Calf Tenderness, No Pedal Edema Neurologic/Psychiatric: Alert, Oriented x3, No Motor/Sensory Deficits, Normal Mood/Affect Skin: Normal Color, Warm/Dry Lymphatic: No Adenopathy Results Lab Laboratory Tests 03/27/22 08:14: White Blood Count 11.8H, Red Blood Count 5.88H, Hemoglobin 18.0H, Hematocrit 53, Mean Corpuscular Volume 91, Mean Corpuscular Hemoglobin 31, Mean Corpuscular Hemoglobin Concent 34, Red Cell Distribution Width 13.3, Platelet Count 261, Mean Platelet Volume 11.3, Immature Granulocyte % (Auto) 1, Neutrophils (%) (Auto) 69, Lymphocytes (%) (Auto) 18, Monocytes (%) (Auto) 5, Eosinophils (%) (Auto) 7, Basophils (%) (Auto) 1, Neutrophils # (Auto) 8.2H, Lymphocytes # (Aut o) 2.1, Monocytes # (Auto) 0.6, Eosinophils # (Auto) 0.8H, Basophils # (Auto) 0.1, Immature Granulocyte # (Auto) 0.1, Sodium Level 136, Potassium Level 5.2H, Chloride Level 101, Carbon Dioxide Level 19L, Anion Gap 16H, Blood Urea Nitrogen 34H, Creatinine 2.66H, Estimat Glomerular Filtration Rate 24, BUN/Creatinine Ratio 13, Glucose Level 252H, Lactic Acid Level 2.28*H, Calcium Level 10.1, Corrected Calcium , Magnesium Level 1.8, Total Bilirubin 0.4, Aspartate Amino Transf (AST/SGOT) 49H, Alanine Aminotransferase (ALT/SGPT) 56H, Alkaline Phos phatase 152H, Troponin I < 0.30, Pro-B-Type Natriuretic Peptide 31.9, Total Protein 8.0, Albumin 4.6H, Lipase 53 03/27/22 08:50: Influenza Type A (RT-PCR) Not Detected, Influenza Type B (RT-PCR) Not Detected, SARS-CoV-2 RNA (RT-PCR) Not Detected 03/27/22 10:20: Lactic Acid Level 1.97 03/27/22 12:25: Urine Color YELLOW, Urine Clarity SLT CLOUDY, Urine pH 5.0, Urine Specific [place] >=1.030, Urine Protein TRACEH, Urine Glucose (UA) 2+H, Urine Ketones TRACEH, Urine Nitrite NEGATIVE, Urine Bilirubin 1+H, Urine Urobilinogen 0.2, Urine Leukocyte Esterase NEGATIVE, Urine RBC (Auto) NEGATIVE, Urine RBC NONE, Urine WBC 0-2, Urine Squamous Epithelial Cells NONE, Urine Crystals NONE, Urine Bacteria NEGATIVE, Urine Casts PRESENT, Urine Hyaline Casts 2-5H, Urine Mucus SMALLH, Urine Culture Indicated NO 03/27/22 21:05: Glucometer 125H 03/28/22 05:00: White Blood Count 11.7H, Red Blood Count 4.95, Hemoglobin 15.2, Hematocrit 46, Mean Corpuscular Volume 93, Mean Corpuscular Hemoglobin 31, Mean Corpuscular Hemoglobin Concent 33, Red Cell Distribution Width 13.2, Platelet Count 158, Mean Platelet Volume 11.1, Immature Granulocyte % (Auto) 0, Neutrophils (%) (Auto) 77H, Lymphocytes (%) (Auto) 13, Monocytes (%) (Auto) 6, Eosinophils (%) (Auto) 4, Basophils (%) (Auto) 0, Neutrophils # (Auto) 9.0H, Lymphocytes # (Auto) 1.5, Monocytes # (Auto) 0.7, Eosinophils # (Auto) 0.4H, Basophils # (Auto) 0.1, Immature Granulocyte # (Auto) 0.0, Sodium Level 140, Potassium Level 4.5, Chloride Level 116#H, Carbon Dioxide Level 13L, Anion Gap 11, Blood Urea Nitrogen 32H, Creatinine 1.81H, Estimat Glomerular Filtration Rate 38, BUN/Creatinine Ratio 18, Glucose Level 157H, Lactic Acid Level 0.98, Calcium Level 8.5, Corrected Calcium 9.1, Total Bilirubin 0.5, Aspartate Amino Transf (AST/SGOT) 15, Alanine Aminotransferase (ALT/SGPT) 31, Alkaline Phosphatase 109, Total Protein 5.9L, Albumin 3.3 Assessment/Plan Assessment/Plan Assessment/Plan Assessment: Pneumobilia on CT Abd/Pelvis Abdominal Pain Diarrhea Plan: Continue to monitor patient labs. Micro still pending. Ex-Lap may be necessary if bowel is present. Pain control with meds. NPO. Clinical Quality Measures DVT/VTE Risk/Contraindication: Contraindications-Pharm: Other *list below* Other: or DOUG SCHAEFFER DO 03/28/22 1250: Subjective Time Seen by a Provider: 11:51 Subjective/Events-last exam Pt seen and examined, states he has no pain; but, also just got Dilaudid. He is hungry and wants to eat. Pain is not worse. Review of Systems General: No Chills, No Night Sweats Pulmonary: No Dyspnea, No Cough Cardiovascular: No: Chest Pain, Palpitations Gastrointestinal: Abdominal Pain; No: Nausea, Vomiting Objective Exam General Appearance: No Apparent Distress, Chronically ill HEENT: PERRL/EOMI, Moist Mucous Membranes Respiratory: Chest Non Tender, Lungs Clear, Normal Breath Sounds, No Accessory Muscle Use, No Respiratory Distress Cardiovascular: Regular Rate, Rhythm, No Murmur Gastrointestinal: normal bowel sounds, non tender, soft, tenderness (diffusely but more in upper abdomen) Extremity: No Pedal Edema Neurologic/Psychiatric: Alert, Oriented x3 Assessment/Plan Assessment/Plan Assessment/Plan Pneumobilia on CT Abd/Pelvis Abdominal Pain Diarrhea Plan: Continue to monitor patient labs. Micro still pending. Will do an EGD today to look at stomach; Ex-Lap may be necessary if bowel is present. Pain control with meds. NPO. I had discussion with pt that although labs are getting better the CT bothers me and I feel like doing nothing is not a good choice because he is still requiring Dilaudid for pain. He understood and agrees with EGD. Supervisory-Addendum Brief Verification & Attestation Participated in pt care: history, MDM, physical Personally performed: exam, history, MDM, supervision of care Care discussed with: Medical Student Procedures: n/a Verification and Attestation of Medical Student E/M Service A medical student performed and documented this service. I then reviewed and verified all information documented by the medical student and made modifications to such information, when appropriate. I personally performed a physical exam, medical decision making and then discussed any differences between the notes and made revisions as necessary to create one note. Doug Schaeffer , 03/28/22 , 12:50 FABRICIO BRITT Mar 28, 2022 07:58 DOUG SCHAEFFER DO Mar 28, 2022 12:50
[2022-03-28] MEDS: DOCUSATE SODIUM 100 MG (COLACE) CAP PO SCH ×2 (08:17→20:48)
--- NOTE | 2022-03-28 10:51 | Progress Note - Hospitalist ---
RISHI SIDDIQUI 03/28/22 1051: Subjective HPI/CC On Admission Date Seen by Provider: Mar 28, 2022 Time Seen by Provider: 09:00 CC: Abdominal pain HPI: This is a complicated [facility] male pt. 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 He presented to the ER with abdominal pain. He was found to have free air on CT scan. We will evaluate that. Continue supportive care and place him on cardiac step down unit. Dr. Schaeffer will review the plan. He was given one dose of Rocephin. Subjective/Events-last exam Pt resting comfortably with pain under control after medication. His creatinine function has improved after fluids, which we will continue at this time. His lactic acid has also improved from 1.97 yesterday to 0.98 today. He denies any n/v/d, shortness of breath, chest pain, or any other sx at this time. Review of Systems General: No Chills, No Night Sweats HEENT: No Visual Changes Pulmonary: No Dyspnea, No Cough Cardiovascular: No: Chest Pain Gastrointestinal: Abdominal Pain (minimal secondary to recent pain meds); No: Nausea, Vomiting, Diarrhea, Constipation, Melena Genitourinary: No Dysuria Neurological: No: Weakness, Numbness Focused Exam Lactate Level 03/27/22 08:14: Lactic Acid Level 2.28*H 03/27/22 10:20: Lactic Acid Level 1.97 03/28/22 05:00: Lactic Acid Level 0.98 Objective Exam Vital Signs Vital Signs Date Time Temp Pulse Resp B/P (MAP) Pulse Ox O2 Delivery O2 Flow Rate FiO2 03/28/22 09:00 100 Room Air 03/28/22 08:04 0.00 03/28/22 08:00 36.4 91 18 105/67 (80) Capillary Refill : Less Than 3 Seconds General Appearance: No Apparent Distress, WD/WN HEENT: PERRL/EOMI, Pharynx Normal Neck: Non Tender, Supple Respiratory: Chest Non Tender, Lungs Clear, Normal Breath Sounds, No Accessory Muscle Use, No Respiratory Distress Cardiovascular: Regular Rate, Rhythm, No Gallop, No JVD, No Murmur Gastrointestinal: Non Tender, Soft, Abnormal Bowel Sounds (decreased ); No Distended, No Guarding, No Rebound; Other (large surgical scar from open appendectomy ) Back: No CVA Tenderness Extremity: Non Tender, No Calf Tenderness, No Pedal Edema Neurologic/Psychiatric: Alert, Oriented x3, Normal Mood/Affect Skin: Normal Color, Warm/Dry; No Rash Lymphatic: No Adenopathy Results/Procedures Lab Laboratory Tests 03/28/22 05:00 Patient resulted labs reviewed. Assessment/Plan Assessment and Plan Assess & Plan/Chief Complaint Assessment: Pneumobilia and portal venous air Dehydration with ALETHEA - Creatinine improved from 2.66 to 1.81 Lactic Acidosis - improved to 0.98 CAD Plan: General surgery consulted, may do exploratory laparotomy. Pt is NPO at this time. Continue IVF Blood cultures pending Monitor labs and supportive care Clinical Quality Measures DVT/VTE Risk/Contraindication: Contraindications-Pharm: Other *list below* Other: or YESENIA KOTHARI DO 03/29/22 0520: Subjective Subjective/Events-last exam Patient doing much better EGD scheduled for today Kidney function much improved Moving to the floor Supervisory-Addendum Brief Verification & Attestation Participated in pt care: history, MDM, physical Personally performed: exam, history, MDM, supervision of care Care discussed with: Medical Student Procedures: n/a Results interpretation: Verified all documentation Verification and Attestation of Medical Student E/M Service A medical student performed and documented this service in my presence. I reviewed and verified all information documented by the medical student and made modifications to such information, when appropriate. I personally performed the physical exam and medical decision making. Yesenia Kothari Mar 29, 2022,05:20 RISHI SIDDIQUI Mar 28, 2022 10:51 YESENIA KOTHARI DO Mar 29, 2022 05:20
[2022-03-28] MEDS ORDERED: LISI1TAB46 PO (13:55)
[2022-03-28] MEDS ORDERED: INSU100I29 SQ (13:55)
[2022-03-28] MEDS ORDERED: EMPA25TA PO (13:55)
[2022-03-28] MEDS ORDERED: PANT40TA52 PO (13:55)
[2022-03-28] MEDS ORDERED: POLY30DR6 OU (13:55)
[2022-03-28] MEDS ORDERED: CHOL20003 PO (13:55)
[2022-03-28] MEDS ORDERED: ACET-2267 PO (13:55)
[2022-03-28] MEDS ORDERED: METO100T12 PO (13:55)
[2022-03-28] MEDS ORDERED: ATOR80TA76 PO (13:55)
[2022-03-28] MEDS ORDERED: SEMA1PEN3 SQ (13:55)
[2022-03-28] MEDS ORDERED: METF-478 PO (13:55)
[2022-03-28] MEDS ORDERED: CLOP75TA28 PO (13:55)
[2022-03-28] MEDS: SODIUM BICARBONATE 650 MG TABLET PO SCH ×2 (14:32→20:48)
[2022-03-28] MEDS ORDERED: LACTATED RINGERS 1,000 ML IV STA (14:43)
[2022-03-28] MEDS ORDERED: HURRICAINE EXT TUBE (BENZOCAINE) XX PRN (14:45)
[2022-03-28] MEDS ORDERED: PROPOFOL INJECTION 50 ML IV ONE (15:23)
--- NOTE | 2022-03-28 15:42 | Anesthesia-General Post-Op ---
MAC Patient Condition Mental Status/LOC: Same as Preop Cardiovascular: Satisfactory Nausea/Vomiting: Absent Respiratory: Satisfactory Pain: Controlled Complications: Absent Post Op Complications Complications None Follow Up Care/Instructions Patient Instructions None needed. Anesthesiology Discharge Order Discharge Order Patient is doing well, no complaints, stable vital signs, no apparent adverse anesthesia problems. No complications reported per nursing. BRENDA HOWE CRNA Mar 28, 2022 15:42
--- NOTE | 2022-03-28 15:49 | Progress Note-Post Operative ---
Post-Operative Progess Note Surgeon (s)/Manufacturing Baker (s) Surgeon ELISHA MARTINEZ DO Manufacturing Baker: none Pre-Operative Diagnosis Abdominal pain, ??stomach problems Post-Operative Diagnosis Gastric Ulcer vs. Ischemic Hiatal hernia Procedure & Operative Findings Date of Procedure 03/28/22 Procedure Performed/Findings EGD with bx PROCEDURE NOTE: After informed consent was obtained, the patient was brought to the endoscopy suite, placed in bed in left lateral decubitus position. He was administered IV sedation by the CENTRAL SUPPLY ASSISTANT who then monitored vitals the entire time, heart rate, blood pressure and pulse ox and the scope was inserted down the mouth through the esophagus into the stomach. Pushed into the stomach and immediately saw inflammation and then what looked like possibly ischemic ulceration. It was almost in a line toward the duodenum. Pushed past the antrum into the duodenum. Duodenum looked good. Pulled back and did a biopsy of the antral ulcer, then picked another spot in the body to biopsy this area. Next, retroflexed the scope, saw a small hiatal hernia, took a picture of this and then did another biopsy of upper third of stomach; at inflammation. Pulled the scope into the GE junction, took another picture of the hiatal hernia and then did a biopsy of the GE junction. Pushed the scope backinto the stomach, suctioned all the air out of the stomach. At this point pulled the scope up the esophagus and out the mouth. The patient tolerated the procedure, and he recovered in endoscopy suite. Anesthesia Type IV sedation by CENTRAL SUPPLY ASSISTANT Estimated Blood Loss Estimated blood loss (mL): scant Specimens/Packing Specimens Removed antral bx body of stomach bx upper stomach bx GE jxn bx ELISHA MARTINEZ DO Mar 28, 2022 15:49
[2022-03-28] MEDS: PANTOPRAZOLE 40 MG (PROTONIX) VIAL IV SCH (20:48)
[2022-03-29] MEDS: NS IV 1000 ML 1,000 ML IV SCH ×2 (02:34→08:12)
[2022-03-29 03:34] VITALS: BP 166/89
[2022-03-29] MEDS: inSUlin ASPART (NovoLOG) 1 UNIT/0.01 ML (CHARGE PER UNIT) SC SCH ×4 (05:48→20:11)
[2022-03-29 05:56] LABS: BASOPHILS % (AUTO) 0 % (0-10); EOSINOPHILS # (AUTO) 0.4 10^3/uL (0.0-0.3); EOSINOPHILS % (AUTO) 5 % (0-10); HEMATOCRIT 42 % (40-54); HEMOGLOBIN 13.6 g/dL (13.3-17.7); LYMPHOCYTES # (AUTO) 1.3 10^3/uL (1.0-4.0); LYMPHOCYTES % (AUTO) 18 % (12-44); MEAN CORPUSCULAR HEMOGLOBIN 31 pg (25-34); MEAN CORPUSCULAR HGB CONC 33 g/dL (32-36); MEAN CORPUSCULAR VOLUME 94 fL (80-99); MEAN PLATELET VOLUME 11.2 fL (9.0-12.2); MONOCYTES # (AUTO) 0.5 10^3/uL (0.0-1.0); MONOCYTES % (AUTO) 8 % (0-12); NEUTROPHILS # (AUTO) 4.7 10^3/uL (1.8-7.8); NEUTROPHILS % (AUTO) 68 % (42-75); PLATELET COUNT 124 10^3/uL (130-400); WHITE BLOOD COUNT 6.9 10^3/uL (4.3-11.0)
[2022-03-29 06:02] LABS: POTASSIUM 4.2 MMOL/L (3.6-5.0)
[2022-03-29 06:03] LABS: CALCIUM 8.3 MG/DL (8.5-10.1)
[2022-03-29 06:05] LABS: TOTAL PROTEIN 5.3 GM/DL (6.4-8.2)
[2022-03-29 06:06] LABS: BILIRUBIN,TOTAL 0.5 MG/DL (0.1-1.0)
[2022-03-29 06:08] LABS: CREATININE SERUM 1.14 MG/DL (0.60-1.30)
[2022-03-29 07:29] VITALS: BP 134/87
--- NOTE | 2022-03-29 08:26 | Progress Note - Surgery ---
FABRICIO BRITT 03/29/22 0826: Subjective Date Seen by a Provider: Mar 29, 2022 Time Seen by a Provider: 08:21 Subjective/Events-last exam Patient is awake and talkative today. He seems to be in good spirits after being able to advance his diet. Reports 0/10 pain without any pain meds given. He would like to know if he can get his catheter taken out. He denies any abd pain, nausea or vomiting at this time. Labs reviewed. Review of Systems General: No Chills; Appetite Pulmonary: No Dyspnea, No Cough Cardiovascular: No: Chest Pain, Palpitations Gastrointestinal: No: Nausea, Vomiting, Abdominal Pain Focused Exam Lactate Level 03/27/22 08:14: Lactic Acid Level 2.28*H 03/27/22 10:20: Lactic Acid Level 1.97 03/28/22 05:00: Lactic Acid Level 0.98 Objective Exam Vital Signs Date Time Temp Pulse Resp B/P (MAP) Pulse Ox O2 Delivery O2 Flow Rate FiO2 03/29/22 07:29 36.7 93 18 134/87 (103) 94 Room Air 03/29/22 03:34 36.1 78 18 166/89 (114) 94 Room Air 03/28/22 23:23 36.9 72 18 119/71 (87) 92 Room Air 03/28/22 21:08 100 Room Air 03/28/22 19:12 37.5 85 20 136/79 (98) 95 Room Air 03/28/22 16:08 36.2 90 18 138/67 (90) 95 Room Air 03/28/22 15:50 92 18 94 Room Air 03/28/22 15:47 95 16 93 Room Air 03/28/22 14:13 36.7 85 18 157/76 (103) 95 Room Air 03/28/22 09:00 100 Room Air I & O 03/29/22 07:00 Intake Total 800 ml Output Total 1800 ml Balance -1000 ml Capillary Refill : Less Than 3 Seconds General Appearance: No Apparent Distress, Chronically ill HEENT: PERRL/EOMI, Moist Mucous Membranes Neck: Non Tender, Supple Respiratory: Chest Non Tender, Lungs Clear, Normal Breath Sounds, No Accessory Muscle Use, No Respiratory Distress Cardiovascular: Regular Rate, Rhythm, No Murmur Gastrointestinal: normal bowel sounds, non tender, soft Extremity: No Calf Tenderness, No Pedal Edema Neurologic/Psychiatric: Alert, Oriented x3 Skin: Normal Color, Warm/Dry; No Rash Lymphatic: No Adenopathy Results Lab Laboratory Tests 03/28/22 10:47: Glucometer 132H 03/28/22 16:07: Glucometer 170H 03/28/22 20:41: Glucometer 179H 03/29/22 05:10: White Blood Count 6.9, Red Blood Count 4.45, Hemoglobin 13.6, Hematocrit 42, Mean Corpuscular Volume 94, Mean Corpuscular Hemoglobin 31, Mean Corpuscular Hemoglobin Concent 33, Red Cell Distribution Width 13.2, Platelet Count 124L, Mean Platelet Volume 11.2, Immature Granulocyte % (Auto) 1, Neutrophils (%) (Auto) 68, Lymphocytes (%) (Auto) 18, Monocytes (%) (Auto) 8, Eosinophils (%) (Auto) 5, Basophils (%) (Auto) 0, Neutrophils # (Auto) 4.7, Lymphocytes # (Auto) 1.3, Monocytes # (Auto) 0.5, Eosinophils # (Auto) 0.4H, Basophils # (Auto) 0.0, Immature Granulocyte # (Auto) 0.1, Sodium Level 138, Potassium Level 4.2, Chloride Level 115H, Carbon Dioxide Level 16L, Anion Gap 7, Blood Urea Nitrogen 18, Creatinine 1.14, Estimat Glomerular Filtration Rate 66, BUN/Creatinine Ratio 16, Glucose Level 129H, Calcium Level 8.3L, Corrected Calcium 9.1, Total Bilirubin 0.5, Aspartate Amino Transf (AST/SGOT) 11, Alanine Aminotransferase (ALT/SGPT) 17, Alkaline Phosphatase 95, Total Protein 5.3L, Albumin 3.0L 03/29/22 05:26: Glucometer 131H Microbiology 03/27/22 Blood Culture - Preliminary, Resulted No growth Assessment/Plan Assessment/Plan Assessment/Plan Gastric vs. ischemic ulcer on EGD - 03/28/22 Hiatal hernia on EGD - 03/28/[address] Abd/Pelvis Abdominal Pain Diarrhea Plan: Continue to monitor patient labs. Micro shows no growth. Discontinue pat catheter. EGD from yesterday shows gastric vs. ischemic ulcer and hiatal hernia. Start IV protonix today. Will continue to advance diet as patient tolerates and will keep for observation at least one more day. Clinical Quality Measures DVT/VTE Risk/Contraindication: Contraindications-Pharm: Other *list below* Other: or DOUG SCHAEFFER DO 03/29/221808: Subjective Time Seen by a Provider: 17:22 Subjective/Events-last exam Pt seen and examined, states he has no abdominal pain and is tolerating soft diet. Review of Systems General: No Chills Pulmonary: No Dyspnea, No Cough Cardiovascular: No: Chest Pain, Palpitations Gastrointestinal: No: Nausea, Vomiting, Abdominal Pain Objective Exam General Appearance: No Apparent Distress, Chronically ill HEENT: PERRL/EOMI, Moist Mucous Membranes Respiratory: Lungs Clear, Normal Breath Sounds, No Accessory Muscle Use, No Respiratory Distress Cardiovascular: Regular Rate, Rhythm, No Murmur Gastrointestinal: normal bowel sounds, non tender, soft Extremity: No Calf Tenderness, No Pedal Edema Neurologic/Psychiatric: Alert, Oriented x3 Assessment/Plan Assessment/Plan Assessment/Plan Gastric vs. ischemic ulcer on EGD - 03/28/22 Hiatal hernia on EGD - 03/28/[address] Abd/Pelvis Abdominal Pain Diarrhea Plan: Continue to monitor patient labs. Micro shows no growth. Discontinue pat catheter. EGD from yesterday shows gastric vs. ischemic ulcer and hiatal hernia. Start IV protonix today. Will continue to advance diet as patient tolerates and will keep for observation at least one more day. Supervisory-Addendum Brief Verification & Attestation Participated in pt care: history, MDM, physical Personally performed: exam, history, MDM, supervision of care Care discussed with: Medical Student Procedures: n/a Verification and Attestation of Medical Student E/M Service A medical student performed and documented this service. I then reviewed and verified all information documented by the medical student and made modifications to such information, when appropriate. I personally performed a physical exam, medical decision making and then discussed any differences between the notes and made revisions as necessary to create one note. Doug Schaeffer , 03/29/22 , 18:11 FABRICIO BRITT Mar 29, 2022 08:26 DOUG SCHAEFFER DO Mar 29, 2022 18:09
[2022-03-29] MEDS: SODIUM BICARBONATE 650 MG TABLET PO SCH ×3 (08:44→20:11)
[2022-03-29] MEDS: PANTOPRAZOLE 40 MG (PROTONIX) VIAL IV SCH ×2 (08:44→20:11)
[2022-03-29] MEDS: DOCUSATE SODIUM 100 MG (COLACE) CAP PO SCH ×2 (08:44→20:11)
[2022-03-29 11:12] VITALS: BP 147/95
--- NOTE | 2022-03-29 11:55 | Occupational Therapy Eval ---
OT Evaluation-General/PLF Medical Diagnosis Admission Date Mar 27, 2022 at 15:35 Medical Diagnosis: dehydration, pneumobilia Onset Date: Mar 27, 2022 Therapy Diagnosis Therapy Diagnosis: n/a Precautions Precautions/Isolations: Fall Prevention, Standard Precautions Referral Physician: Taye Lawler Reason: Evaluation/Treatment Medical History Additional Medical History CAD, [place]/stents (2021), GERD, DM Current History ED with watery diarrhea and RUQ pain. Social History Home: Multilevel Current Living Status: Alone Steps Inside Home: 12 (5 up, 7 down to basement) ADL-Prior Level of Function SCALE: Activities may be completed with or without assistive devices. 1-Aspuvsldzs-bwvlbij completes the activity by him/herself with no assistance from a helper. 5-Set-up or Clean-up Assistance-helper sets up or cleans up; patient completes activity. [place] assists only prior to or following the activity. 4-Supervision or Touching Assistance-helper provides verbal cues and/or touching/steadying and/or contact guard assistance as patient completes activity. Assistance may be provided throughout the activity or intermittently. 3-Partial/Moderate Assistance-helper does LESS THAN HALF the effort. [place] lifts, holds or supports trunk or limbs, but provides less than half the effort. 2-Substantial/Maximal Assistance-helper does MORE THAN HALF the effort. [place] lifts or holds trunk or limbs and provides more than half the effort. 3-Uccifyhnd-xadkff does ALL the effort. Patient does none of the effort to complete the activity. Or, the assistance of 2 or more helpers is required for the patient to complete the activity. If activity was not attempted, code reason: 7-Patient Refused. 9-Not Applicable-not attempted and the patient did not perform the activity before the current illness, exacerbation or injury. 10-Not Attempted due to Environmental Limitations-(lack of equipment, weather restraints, etc.). 88-Not Attempted due to Medical Conditions or Safety Concerns. ADL PLOF Comments Pt reports IND with ADLs and functional mobility at PLOF, no AD. He has a walk in shower, no SC. Self Care: Independent Functional Cognition: Independent DME/Equipment: Shower OT Current Status Subjective Pt in bed, states hasn't been OOB in a few days Mental Status/Objective Patient Orientation: Person, Place, Time, Situation Current Upper Extremity ROM WFL, BUE shoulder flexion to approx 160 degrees Upper Extremity Coordination WFL Upper Extremity Strength grossly 5/5 ADL-Treatment Eating (QC): 6 On/Off Footwear (QC): 6 Toileting Hygiene (QC): 6 Other Treatments Pt in bed, transferred supine to sit EOB independently. Pt performed functional mobility around his room, no AD independently and transferred to recliner. Pt declined further OT services, states he is back at PLOF and has no concerns with his ability to complete LE dressing, footwear, showering, toileting. Post tx, pt in recliner, call light in reach and all needs met. Education OT Patient Education: Correct positioning, Energy conservation, Modified ADL techniques, Progress toward Goal/Update tx plan, Purpose of tx/functional activities, Rehab process Teaching Recipient: Patient Teaching Methods: Discussion Response to Teaching: Verbalize Understanding OT Bi Report Developer Goals Bi Report Developer Goals 1=Demonstrate adherence to instructed precautions during ADL tasks. 2=Patient will verbalize/demonstrate understanding of assistive devices/modifications for ADL. 3=Patient will improve strength/tolerance for activity to enable patient to perform ADL's. OT Education/Plan Problem List/Assessment Assessment: No Skilled OT Needs ID'd No skilled OT services indicated at this time, pt is at his PLOF and independent with ADLs. D/C from OT. Discharge Recommendations Plan/Recommendations: Discharge/Goals Met Treatment Plan/Plan of Care Patient would benefit from OT for education, treatment and training to promote independence in ADL's, mobility, safety and/or upper extremity function for ADL's. Plan of Care: ADL Retraining, Functional Mobility Treatment Duration: Mar 29, 2022 Frequency: 1 time per week (eval only) Estimated Hrs Per Day: .25 hour per day Agreement: Yes Rehab Potential: Good Time/GCodes Start Time: 11:37 Stop Time: 11:47 Total Time Billed (hr/min): 10 Billed Treatment Time 1, JULISSA PRATER OT Mar 29, 2022 11:55
--- NOTE | 2022-03-29 12:35 | Progress Note - Hospitalist ---
RISHI SIDDIQUI 03/29/22 1235: Subjective HPI/CC On Admission Date Seen by Provider: Mar 29, 2022 Time Seen by Provider: 10:30 CC: Abdominal pain HPI: This is a complicated [facility] male pt. 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 He presented to the ER with abdominal pain. He was found to have free air on CT scan. We will evaluate that. Continue supportive care and place him on cardiac step down unit. Dr. Schaeffer will review the plan. He was given one dose of Rocephin. Subjective/Events-last exam Pt resting pain free, with final dose of pain medication last night (03/28/22). He received an EGD yesterday, followed by Dr. Schaeffer who advanced his diet to soft food, which pt is tolerating well. His folely catheter has been removed. He has not had a bowel movement yet, likely do to NPO/soft diet. Hydration status and kidney function have significantly improved, will stop IV fluids at this time.He denies fever chills, N/V/D, cough, chest pain, shortness of breath or any other acute sx. . Pt states he is feeling good and is ready to go home. Hospital Course: Bonilla Hall, 77 YO male, with hx of appendectomy, cholecystecomy, and partial esophogectomy presented to ED on 03/27/22 with dehydration/ALETHEA and RUQ abdominal pain. CT showed evidence of pneumobilia. He has received IV fluids, which has significantly improved his kidney function. EGD by Dr. Schaeffer showed gastric vs ischemic ulcer and hiatal hernia. His diet was advanced to softs, which he is currently tolerated. Encouraged ambulation. Pt is feeling much better and stable at this time. Review of Systems General: No Chills, No Night Sweats, No Appetite HEENT: No Visual Changes Pulmonary: No Dyspnea, No Cough Cardiovascular: No: Chest Pain, Palpitations Gastrointestinal: No: Nausea, Vomiting, Abdominal Pain, Diarrhea, Melena Genitourinary: No Dysuria, No Frequency Neurological: No: Weakness, Numbness Focused Exam Lactate Level 03/27/22 08:14: Lactic Acid Level 2.28*H 03/27/22 10:20: Lactic Acid Level 1.97 03/28/22 05:00: Lactic Acid Level 0.98 Objective Exam Vital Signs Vital Signs Date Time Temp Pulse Resp B/P (MAP) Pulse Ox O2 Delivery O2 Flow Rate FiO2 03/29/22 11:12 36.0 73 18 147/95 (112) 95 Room Air 03/28/22 08:04 0.00 Capillary Refill : Less Than 3 Seconds General Appearance: No Apparent Distress, WD/WN HEENT: PERRL/EOMI, Moist Mucous Membranes Neck: Non Tender, Supple Respiratory: Lungs Clear, Normal Breath Sounds, No Accessory Muscle Use, No Respiratory Distress Cardiovascular: Regular Rate, Rhythm, No Gallop, No Murmur, Normal Peripheral Pulses Gastrointestinal: Normal Bowel Sounds, Non Tender, Soft; No Guarding, No Rebound Back: No CVA Tenderness Extremity: Non Tender, No Calf Tenderness Neurologic/Psychiatric: Alert, Oriented x3, Normal Mood/Affect Skin: Normal Color, Warm/Dry Lymphatic: No Adenopathy Results/Procedures Lab Laboratory Tests 03/29/22 05:10 Patient resulted labs reviewed. Assessment/Plan Assessment and Plan Assess & Plan/Chief Complaint Assessment: Pneumobilia and portal venous air - EGD showed gastric vs. ischemic ulcer Dehydration with ALETHEA - Creatinine signficantly improved to 1.14 Lactic Acidosis - improved to 0.98 CAD Plan: General surgery did EGD yesterday and advanced his diet. Pt tolerating well at this time. Russ catheter out. Discontinued IVF Micro showed no growth Encouraged ambulation Pt stable and ready for dismissal Clinical Quality Measures DVT/VTE Risk/Contraindication: Contraindications-Pharm: Other *list below* Other: or YESENIA YANG DO 03/29/222104: Subjective Subjective/Events-last exam Pt is doing a lot better Denies any new problems Ready for discharge Will see if Dr. Schaeffer agrees with discharge plan Supervisory-Addendum Brief Verification & Attestation Participated in pt care: history, MDM, physical Personally performed: exam, history, MDM, supervision of care Care discussed with: Medical Student Procedures: n/a Results interpretation: Verified all documentation Verification and Attestation of Medical Student E/M Service A medical student performed and documented this service in my presence. I reviewed and verified all information documented by the medical student and made modifications to such information, when appropriate. I personally performed the physical exam and medical decision making. Yesenia Yang, Mar 29, 2022,21:05 RISHI SIDDIQUI Mar 29, 2022 12:35 YESENIA YANG DO Mar 29, 2022 21:05
--- NOTE | 2022-03-29 12:42 | Physical Therapy Evaluation ---
PT Evaluation-General Medical Diagnosis Admission Date Mar 27, 2022 at 15:35 Medical Diagnosis: dehydration, pneumobilia Onset Date: Mar 27, 2022 Therapy Diagnosis Therapy Diagnosis: independent with mobility Precautions Precautions/Isolations: Fall Prevention, Standard Precautions Weight Bear Status Right Lower Extremity: Right Weight Bearing/Tolerated Left Lower Extremity: Left Weight Bearing/Tolerated Referral Physician: Taye Reason for Referral: Evaluation/Treatment Medical History History of Falls (past yr): Unknown Prior Surgery (last 100 days): Unknown Additional Medical History Past Medical History Surgeries: Abdominal, Appendectomy, Coronary Stent (2001), Gallbladder, Tonsillectomy Coronary Artery Disease, Heart Attack (2001) Gastroesophageal Reflux Reviewed History: Yes Social History Home: Multilevel Current Living Status: Alone Entry Into Home: Level Entry PT Steps Inside Home: 12 (5 up, 7 down to basement) Prior Prior Level of Function SCALE: Activities may be completed with or without assistive devices. 6-Wyrtezjttb-mzwevdr completes the activity by him/herself with no assistance from a helper. 5-Set-up or Clean-up Assistance-helper sets up or cleans up; patient completes activity. [place] assists only prior to or following the activity. 4-Supervision or Touching Assistance-helper provides verbal cues and/or touching/steadying and/or contact guard assistance as patient completes activity. Assistance may be provided throughout the activity or intermittently. 3-Partial/Moderate Assistance-helper does LESS THAN HALF the effort. [place] lifts, holds or supports trunk or limbs, but provides less than half the effort. 2-Substantial/Maximal Assistance-helper does MORE THAN HALF the effort. [place] lifts or holds trunk or limbs and provides more than half the effort. 9-Mstvatsgq-booeeb does ALL the effort. Patient does none of the effort to complete the activity. Or, the assistance of 2 or more helpers is required for the patient to complete the activity. If activity was not attempted, code reason: 7-Patient Refused. 9-Not Applicable-not attempted and the patient did not perform the activity b efore the current illness, exacerbation or injury. 10-Not Attempted due to Environmental Limitations-(lack of equipment, weather restraints, etc.). 88-Not Attempted due to Medical Conditions or Safety Concerns. Bed Mobility: 6 Transfers (B,C,W/C): 6 Gait: 6 Stairs: 6 Indoor Mobility (Ambulation): Independent Stairs: Independent PT Evaluation-Current Subjective Patient in bed pre tx, agrees to PT, has no pain at rest. Pt/Family Goals "to go home" Objective Patient Orientation: Person, Place, Situation ROM/Strength ROM Lower Extremities WNL Strength Lower Extremities grossly 5/5 BLE Sensory Vision: Functional Hearing: Functional Sensation Right Lower Extremit: Intact Sensation Left Lower Extremity: Intact Transfers Roll Left to Right (QC): 6 Sit to Lying (QC): 6 Lying to Sitting/Side of Bed(Q: 6 Sit to Stand (QC): 6 Chair/Eew-zc-Uicrz Xfer(QC): 6 Gait Does the Patient Walk?: Yes Mode of Locomotion: Walk Anticipated Mode of Locomotion: Walk Walk 10 feet (QC): 6 Walk 50 ft with 2 Turns(QC): 6 Distance: 50' Gait Assistive Device: None Comments/Gait Description independent ambulation Balance Sitting Static: Normal Sitting Dynamic: Normal Standing Dynamic: Normal Assessment/Needs Patient is independent with ambulation, encouraged patient to ambulate in the hallways on his own several times a day Rehab Potential: Good PT Plan Treatment/Plan Treatment Plan: Discontinue PT Treatment Duration: Mar 29, 2022 Frequency: Safety Risks/Education Patient Education: Gait Training, Safety Issues Teaching Recipient: Patient Teaching Methods: Discussion Response to Teaching: Verbalize Understanding Discharge Recommendations Plan DC Therapy Discharge Recommendati: Home & Family Time/GCodes Time In: 1136 Time Out: 1146 Total Billed Treatment Time: 10 Total Billed Treatment 1 visit EVL Mar' MARIANO MICHEL PT Mar 29, 2022 12:42
[2022-03-29 15:30] VITALS: BP 175/98
[2022-03-29 19:21] VITALS: BP 160/92
[2022-03-29 23:29] VITALS: BP 132/73
[2022-03-30 05:28] LABS: BASOPHILS % (AUTO) 1 % (0-10); EOSINOPHILS # (AUTO) 0.5 10^3/uL (0.0-0.3); EOSINOPHILS % (AUTO) 7 % (0-10); HEMATOCRIT 41 % (40-54); HEMOGLOBIN 13.9 g/dL (13.3-17.7); LYMPHOCYTES # (AUTO) 1.3 10^3/uL (1.0-4.0); LYMPHOCYTES % (AUTO) 19 % (12-44); MEAN CORPUSCULAR HEMOGLOBIN 31 pg (25-34); MEAN CORPUSCULAR HGB CONC 34 g/dL (32-36); MEAN CORPUSCULAR VOLUME 91 fL (80-99); MEAN PLATELET VOLUME 11.4 fL (9.0-12.2); MONOCYTES # (AUTO) 0.5 10^3/uL (0.0-1.0); MONOCYTES % (AUTO) 7 % (0-12); NEUTROPHILS # (AUTO) 4.4 10^3/uL (1.8-7.8); NEUTROPHILS % (AUTO) 66 % (42-75); PLATELET COUNT 134 10^3/uL (130-400); WHITE BLOOD COUNT 6.7 10^3/uL (4.3-11.0)
[2022-03-30 05:34] LABS: POTASSIUM 3.9 MMOL/L (3.6-5.0)
[2022-03-30 05:35] LABS: CALCIUM 8.7 MG/DL (8.5-10.1)
[2022-03-30 05:36] LABS: TOTAL PROTEIN 5.5 GM/DL (6.4-8.2)
[2022-03-30 05:38] LABS: BILIRUBIN,TOTAL 0.4 MG/DL (0.1-1.0)
[2022-03-30 05:40] LABS: CREATININE SERUM 1.02 MG/DL (0.60-1.30)
[2022-03-30] MEDS: inSUlin ASPART (NovoLOG) 1 UNIT/0.01 ML (CHARGE PER UNIT) SC SCH (06:03)
[2022-03-30 08:05] VITALS: BP 169/85
--- NOTE | 2022-03-30 08:19 | Progress Note - Surgery ---
DAVIS DOBBS 03/30/22 0819: Subjective Date Seen by a Provider: Mar 30, 2022 Time Seen by a Provider: 08:14 Subjective/Events-last exam Pt is lying in bed comfortably eating breakfast. He reports no abdominal pain this AM. He denies any N/V or problems with his regular diet last night. He is able to ambulate and has no problems with urination or BM. He denies any blood or darkness in stool. Pt states he "feels great" and is "ready to go home". Pts abdomen is not distended or painful this AM. He denies any other symptoms or problems. Reports no pain in his throat or reflux after having his EGD. Review of Systems General: No Chills, No Night Sweats HEENT: No Head Aches, No Visual Changes Pulmonary: No Dyspnea; Cough (intermittent cough) Cardiovascular: No: Chest Pain, Palpitations Gastrointestinal: No: Nausea, Vomiting, Abdominal Pain (reports no abdominal pain today) Genitourinary: No Dysuria, No Hematuria Neurological: No: Change in speech, Confusion Focused Exam Lactate Level 03/27/22 10:20: Lactic Acid Level 1.97 03/28/22 05:00: Lactic Acid Level 0.98 Objective Exam Vital Signs Date Time Temp Pulse Resp B/P (MAP) Pulse Ox O2 Delivery O2 Flow Rate FiO2 03/30/22 08:05 35.7 87 18 169/85 (113) 94 Room Air 03/29/22 23:29 36.2 71 18 132/73 (92) 93 Room Air 03/29/22 20:52 Room Air 03/29/22 19:21 36.2 93 18 160/92 (114) 95 Room Air 03/29/22 15:30 36.0 95 18 175/98 (123) 95 Room Air 03/29/22 11:12 36.0 73 18 147/95 (112) 95 Room Air 03/29/22 09:00 94 Room Air I & O 03/30/22 07:00 Intake Total 3227.5 ml Output Total 450 ml Balance 2777.5 ml Capillary Refill : Less Than 3 Seconds General Appearance: No Apparent Distress, Chronically ill, Other (pt wants to go home) HEENT: PERRL/EOMI, Moist Mucous Membranes; No Scleral Icterus (L), No Scleral Icterus (R) Neck: Non Tender, Supple Respiratory: Lungs Clear, Normal Breath Sounds, No Accessory Muscle Use, No Respiratory Distress Cardiovascular: Regular Rate, Rhythm, No Murmur Peripheral Pulses: 2+ Radial Pulses (R), 2+ Radial Pulses (L) Gastrointestinal: normal bowel sounds, non tender, soft Extremity: No Calf Tenderness, No Pedal Edema Neurologic/Psychiatric: Alert, Oriented x3 Skin: Normal Color, Warm/Dry Lymphatic: No Adenopathy Results Lab Laboratory Tests 03/29/22 11:11: Glucometer 131H 03/29/22 15:39: Glucometer 196H 03/29/22 20:06: Glucometer 158H 03/30/22 04:59: White Blood Count 6.7, Red Blood Count 4.54, Hemoglobin 13.9, Hematocrit 41, Mean Corpuscular Volume 91, Mean Corpuscular Hemoglobin 31, Mean Corpuscular Hemoglobin Concent 34, Red Cell Distribution Width 12.9, Platelet Count 134, Mean Platelet Volume 11.4, Immature Granulocyte % (Auto) 0, Neutrophils (%) (Auto) 66, Lymphocytes (%) (Auto) 19, Monocytes (%) (Auto) 7, Eosinophils (%) (Auto) 7, Basophils (%) (Auto) 1, Neutrophils # (Auto) 4.4, Lymphocytes # (Auto) 1.3, Monocytes # (Auto) 0.5, Eosinophils # (Auto) 0.5H, Basophils # (Auto) 0.0, Immature Granulocyte # (Auto) 0.0, Percent Immature Platelet Fraction 5.3, So dium Level 138, Potassium Level 3.9, Chloride Level 111H, Carbon Dioxide Level 18L, Anion Gap 9, Blood Urea Nitrogen 12, Creatinine 1.02, Estimat Glomerular Filtration Rate 76, BUN/Creatinine Ratio 12, Glucose Level 142H, Calcium Level 8.7, Corrected Calcium 9.5, Total Bilirubin 0.4, Aspartate Amino Transf (AST/SGOT) 14, Alanine Aminotransferase (ALT/SGPT) 17, Alkaline Phosphatase 87, Total Protein 5.5L, Albumin 3.0L Microbiology 03/27/22 Blood Culture - Preliminary, Resulted No growth Assessment/Plan Assessment/Plan Assessment/Plan Gastric vs. ischemic ulcer on EGD - 03/28/22 Hiatal hernia on EGD - 03/28/[address] Abd/Pelvis Abdominal Pain Diarrhea Plan: Continue to monitor patient labs. Micro shows no growth. Discontinue pat catheter. EGD from 03/28 shows gastric vs. ischemic ulcer and hiatal hernia. Started IV protonix. Tolerating solid regular diet last night and for breakfast this AM. Pt is likely ready for discharge today. Clinical Quality Measures DVT/VTE Risk/Contraindication: Contraindications-Pharm: Other *list below* Other: DOUG Hussein DO 03/30/22 1108: Subjective Time Seen by a Provider: 09:43 Subjective/Events-last exam Pt seen and examined, denies abdominal pain and tolerating diet. He wants to go home. Review of Systems General: No Chills, No Night Sweats Pulmonary: No Dyspnea; Cough (intermittent cough) Cardiovascular: No: Chest Pain, Palpitations Gastrointestinal: No: Nausea, Vomiting, Abdominal Pain (reports no abdominal pain today) Genitourinary: No Dysuria, No Hematuria Objective Exam General Appearance: No Apparent Distress, Obese HEENT: PERRL/EOMI, Moist Mucous Membranes Respiratory: Lungs Clear, Normal Breath Sounds, No Accessory Muscle Use, No Respiratory Distress Cardiovascular: Regular Rate, Rhythm, No Murmur Gastrointestinal: normal bowel sounds, non tender, soft Extremity: No Calf Tenderness, No Pedal Edema Neurologic/Psychiatric: Alert, Oriented x3 Assessment/Plan Assessment/Plan Assessment/Plan Gastric vs. ischemic ulcer on EGD - 03/28/22 Hiatal hernia on EGD - 03/28/[address] Abd/Pelvis Abdominal Pain Diarrhea Plan: Continue to monitor patient labs. Micro shows no growth. Discontinue pat catheter. EGD from 03/28 shows gastric vs. ischemic ulcer and hiatal hernia. Started IV protonix. Tolerating solid regular diet last night and for breakfast this AM. Pt is likely ready for discharge today. Supervisory-Addendum Brief Verification & Attestation Participated in pt care: history, MDM, physical Personally performed: exam, history, MDM, supervision of care Care discussed with: Medical Student Procedures: n/a Verification and Attestation of Medical Student E/M Service A medical student performed and documented this service. I then reviewed and verified all information documented by the medical student and made modifications to such information, when appropriate. I personally performed a physical exam, medical decision making and then discussed any differences between the notes and made revisions as necessary to create one note. Doug Martinez , 03/30/22 , 11:09 DAVIS DOBBS Mar 30, 2022 08:19 DOUG MARTINEZ DO Mar 30, 2022 11:08
[2022-03-30] MEDS: PANTOPRAZOLE 40 MG (PROTONIX) VIAL IV SCH (09:14)
[2022-03-30] MEDS: SODIUM BICARBONATE 650 MG TABLET PO SCH (09:14)
[2022-03-30] MEDS: DOCUSATE SODIUM 100 MG (COLACE) CAP PO SCH (09:14)
[2022-03-30] MEDS ORDERED: PANT40TA2 PO (10:48)
[2022-03-30] MEDS ORDERED: SUCR1TAB36 PO (10:48)
--- NOTE | 2022-03-30 10:50 | Discharge Inst-Surgical ---
Discharge Inst-Surgical Depart Medication/Instructions New, Converted or Re-Newed RX: Transmitted to Pharmacy Patient Instructions Follow up Appt: Make appointment for 1 week. [phone] Instructions: May shower in 24 hours, no tub bath or soaking. Use incentive spirometer at home as directed. No Smoking Symptoms to Report: Appetite Changes, Extremity Discoloration, Numbness/Tingling, Swelling Increased, Bleeding Excessive, Eyesight Changes, Pain Increased, Urine Color Change, Constipation(Persistent), Fever over 101 degree F, Pain/Pressure in chest, Urinating Difficulty, Cough Up/Vomit Blood, Heart Beat Irreg/Pounding, Pain/Pressure in jaw, Cramps in feet or legs, Lightheadedness, Pain/Pressure in shoulder, Diarrhea(Persistent), Memory Changes Suddenly, Questions/Concerns, Weight gain consecutive days, Dizziness/Fainting, Nausea/Vomiting, Shortness of Breath, Weight gain over 2 pounds If questions or concerns contact your physician Or seek help at emergency department. Activity Driving Instructions: You May Drive Diet Discharge Diet: No Restrictions Diet After 24 Hours: Clear Liquid if Nauseous If Any Problems/Questions/Issu: Contact Your Physician, Go to Emergency Room Skin/Wound Care Infection Signs and Symptoms: Increased Swelling, Temperature Above 101 F Bathing Instructions: ELISHA Amezquita DO Mar 30, 2022 10:50
[2022-03-30 10:53] VITALS: BP 169/85
== END 2022-03-30 11:27 | disposition home or self-care (01) | DRG 384 ==
LOC: EDUNIT# 07:47 → ER FS 07:48 → CSD 15:35 → 4TH 03-28 13:45
PROVIDERS: ADMIT Internal Medicine; ATTEND Internal Medicine
PROC: 0DB68ZX Excision of Stomach, Via Natural or Artificial Opening Endoscopic, Diagnostic (ICD-10-PCS; 2022-03-28)
PROC: 0DB48ZX Excision of Esophagogastric Junction, Via Natural or Artificial Opening Endoscopic, Diagnostic (ICD-10-PCS; 2022-03-28)
PROC: 0DB78ZX Excision of Stomach, Pylorus, Via Natural or Artificial Opening Endoscopic, Diagnostic (ICD-10-PCS; principal; 2022-03-28 15:25)
DX: K25.9 Gastric ulcer, unspecified as acute or chronic, without hemorrhage or perforation (principal); N17.9 Acute kidney failure, unspecified; E87.20 Acidosis, unspecified; Q43.9 Congenital malformation of intestine, unspecified; E86.0 Dehydration; K83.8 Other specified diseases of biliary tract; K44.9 Diaphragmatic hernia without obstruction or gangrene; I25.10 Atherosclerotic heart disease of native coronary artery without angina pectoris; Z20.822 Contact with and (suspected) exposure to COVID-19; E11.9 Type 2 diabetes mellitus without complications; Z87.891 Personal history of nicotine dependence; K21.9 Gastro-esophageal reflux disease without esophagitis; I25.2 Old myocardial infarction; Z88.1 Allergy status to other antibiotic agents; Z88.0 Allergy status to penicillin; Z79.85 Long-term (current) use of injectable non-insulin antidiabetic drugs; Z79.84 Long term (current) use of oral hypoglycemic drugs; Z79.4 Long term (current) use of insulin
CPT/HCPCS: 36415; 51702; 71045; 74176; 80053; 81000; 82947; 83605; 83690; 83735; 83880; 84484; 85025; 87040; 87636; 94760; 96361; 96365; 96375; 96376

== ENCOUNTER 2022-07-10 05:21 | Outpatient (CLI) | payer MEDICARE ==
[~2022-07-10] VITALS: Ht 172.7 cm; Wt 100.7 kg
[~2022-07-10 05:21] MED LIST: ACET-2267 PO; ATOR80TA76 PO; CHOL20003 PO; CLOP75TA28 PO; EMPA25TA PO; INSU100I29 SQ; LISI1TAB46 PO; METF-478 PO; METO100T12 PO; PANT40TA2 PO; PANT40TA52 PO; POLY30DR6 OU; SEMA1PEN3 SQ; SUCR1TAB36 PO
[2022-07-12] MEDS ORDERED: LIRA0.6P SQ (09:43)
== END 2022-07-12 09:49 | disposition home or self-care (01) ==
LOC: PREOP 05:21
PROVIDERS: ATTEND Surgery
DX: Z01.818 Encounter for other preprocedural examination (principal)

== ENCOUNTER 2022-07-16 07:14 | Day surgery (SDC) | payer MEDICARE, OTHER ==
[~2022-07-16] VITALS: Ht 172.7 cm; Wt 100.7 kg
[~2022-07-16 07:14] MED LIST changes: +LIRA0.6P SQ
[2022-07-16] MEDS ORDERED: LACTATED RINGERS 1,000 ML IV STA (07:34)
[2022-07-16 07:45] VITALS: BP 208/113
[2022-07-16] MEDS ORDERED: HURRICAINE EXT TUBE (BENZOCAINE) XX PRN (07:45)
[2022-07-16] MEDS ORDERED: PROPOFOL INJECTION 50 ML IV ONE (07:47)
[2022-07-16 08:37] VITALS: BP 125/73
--- NOTE | 2022-07-16 08:37 | Progress Note-Post Operative ---
Post-Operative Progess Note Surgeon (s)/Supervisor Mill (s) Surgeon ELISHA MARTINEZ DO Supervisor Mill: none Pre-Operative Diagnosis Hx of Gastric ulcer Post-Operative Diagnosis Gastritis Hiatal hernia Gastric polyps ?Esophageal lesion Procedure & Operative Findings Date of Procedure 07/16/22 Procedure Performed/Findings EGD with biopsy EGD with polypectomy by hot biopsy PROCEDURE NOTE: After informed consent was obtained, the patient was brought to the endoscopy suite, placed in bed in left lateral decubitus position. He was administered IV sedation by the INTERIOR DESIGNER who then monitored vitals the entire time, heart rate, blood pressure and pulse ox and the scope was inserted down the mouth through the esophagus into the stomach. On the way down, noted a small turn at the GE junction but able to get past and pushed into the stomach. Noted some retained food in the upper portion of the stomach, pushed past the antrum into the duodenum. Duodenum looked good. Pulled back, noted mild Gastritis and did a biopsy of the antrum. Then retroflexed the scope, saw small 1 cm hiatal hernia, took a picture of this and then noted Gastric polyps. I elected to use hot biopsy to remove one polyp and biopsies another. Then pulled the scope into the GE junction and found a lesion; either in esophagus or hiatal hernia and biopsied it. Then did a biopsy of the GE junction. Pushed the scope back into the stomach, suctioned all the air out of the stomach. At this point pulled the scope up the esophagus and out the mouth. The patient tolerated the procedure, and he recovered in endoscopy suite. Anesthesia Type IV sedation by INTERIOR DESIGNER Estimated Blood Loss Estimated blood loss (mL): scant Specimens/Packing Specimens Removed antral bx gastric polyp x 2 GE jxn bx ELISHA MARTINEZ DO Jul 16, 2022 08:37
--- NOTE | 2022-07-16 08:38 | Endoscopy Discharge Instruct ---
Endo Procedure/Findings Findings 1.: Polyp 2.: Gastritis 3.: Hiatal Hernia Discharge Instructions - Activity: You might feel a little sleepy until tomorrow. This is due to the medicine you received to relax you. Until tomorrow, you should: NOT drive a car, operate machinery or power tools. NOT drink any alcoholic beverages. NOT make any important decisions or sign importortant papers. Do not return to work until tomorrow, unless otherwise instructed. Resume previous activities tomorrow. Diet: Start by taking liquids. If you tolerate liquids, advance to solid food. 1.: EGD in 3 years Notify Physician - If you experience excessive bleeding, unusual abdominal pain, fever, or chest pain, contact your doctor immediately. ELISHA MARTINEZ DO Jul 16, 2022 08:38
[2022-07-16 08:42] VITALS: BP 126/77
[2022-07-16 08:47] VITALS: BP 154/86
[2022-07-16 08:53] VITALS: BP 154/86
[2022-07-16 09:43] VITALS: BP 154/86
--- NOTE | 2022-07-16 11:45 | Anesthesia-General Post-Op ---
MAC Patient Condition Mental Status/LOC: Same as Preop Cardiovascular: Satisfactory Nausea/Vomiting: Absent Respiratory: Satisfactory Pain: Controlled Complications: Absent Post Op Complications Complications None Follow Up Care/Instructions Patient Instructions None needed. Anesthesiology Discharge Order Discharge Order Patient is doing well, no complaints, stable vital signs, no apparent adverse anesthesia problems. No complications reported per nursing. DK SALAS CRNA Jul 16, 2022 11:45
== END 2022-07-16 09:24 | disposition home or self-care (01) ==
LOC: ENDO 07:14
PROVIDERS: ATTEND Surgery
DX: K29.70 Gastritis, unspecified, without bleeding (principal); K44.9 Diaphragmatic hernia without obstruction or gangrene; K31.7 Polyp of stomach and duodenum; K21.00 Gastro-esophageal reflux disease with esophagitis, without bleeding; K22.711 Barrett's esophagus with high grade dysplasia; E11.9 Type 2 diabetes mellitus without complications; Z79.84 Long term (current) use of oral hypoglycemic drugs; Z79.85 Long-term (current) use of injectable non-insulin antidiabetic drugs; Z87.891 Personal history of nicotine dependence; Z28.310 Unvaccinated for COVID-19; E66.9 Obesity, unspecified; Z87.11 Personal history of peptic ulcer disease; Z95.5 Presence of coronary angioplasty implant and graft; Z68.33 Body mass index [BMI] 33.0-33.9, adult
CPT/HCPCS: 82947